=== PATIENT | male | born 1935 | race Asian ===

== ENCOUNTER → 2016-12-19 | Outpatient (CLI) | payer MEDICARE, MEDICAID | END | disposition home or self-care (01) | LOC: RADPV 10:41 | PROVIDERS: ATTEND Internal Medicine Nephrology | DX: N40.0 Benign prostatic hyperplasia without lower urinary tract symptoms (principal) | CPT/HCPCS: 76770 ==

== ENCOUNTER → 2017-02-01 | Outpatient (CLI) | payer MEDICARE, MEDICAID ==
[2017-02-01 10:25] LABS: APPEARANCE,URINE CLEAR (CLEAR); GLUCOSE, URINE (UA) NEGATIVE (NEGATIVE); KETONES,URINE NEGATIVE (NEGATIVE); LEUKOCYTE ESTERASE ,URINE NEGATIVE (NEGATIVE); OCCULT BLOOD,URINE NEGATIVE (NEGATIVE); PH,URINE 5.5 (5.0-8.0); PROTEIN,URINE NEGATIVE (NEGATIVE)
[2017-02-01 10:27] LABS: ADD UA MICROSCOPIC NO
[2017-02-01 11:35] LABS: ALBUMIN 3.7 g/dL (3.4-5.0); BILIRUBIN,TOTAL 0.7 mg/dL (0.1-1.0); CALCIUM, TOTAL 9.2 mg/dL (8.8-10.5); CREATININE 1.19 mg/dL (0.60-1.30); PHOSPHORUS 3.3 mg/dL (2.5-4.9); POTASSIUM 4.2 mmol/L (3.5-5.1)
== END | disposition home or self-care (01) ==
LOC: LABPV 08:51
PROVIDERS: ATTEND Internal Medicine Nephrology
DX: I12.9 Hypertensive chronic kidney disease with stage 1 through stage 4 chronic kidney disease, or unspecified chronic kidney disease (principal); N18.3 Chronic kidney disease, stage 3 (moderate); M85.80 Other specified disorders of bone density and structure, unspecified site; G20 Parkinson's disease
CPT/HCPCS: 81050; 82306; 82575; 83970; 84100; 84156; 84300

== ENCOUNTER → 2017-08-09 | Outpatient (CLI) | payer MEDICARE, MEDICAID ==
[2017-08-09 11:12] LABS: CALCIUM, TOTAL 9.3 mg/dL (8.8-10.5); CHOL/HDL RATIO 2.7 (4.2-7.3); CREATININE 1.3 mg/dL (0.60-1.30); POTASSIUM 4.4 mmol/L (3.5-5.1)
== END | disposition home or self-care (01) ==
LOC: LABPV 07:05
PROVIDERS: ATTEND Internal Medicine Nephrology
DX: N18.3 Chronic kidney disease, stage 3 (moderate) (principal); G20 Parkinson's disease; M85.80 Other specified disorders of bone density and structure, unspecified site; R79.89 Other specified abnormal findings of blood chemistry

== ENCOUNTER → 2018-07-15 | Outpatient (CLI) | payer MEDICARE, MEDICAID ==
[2018-07-15 10:09] LABS: ALBUMIN 3.3 g/dL (3.4-5.0); BILIRUBIN,TOTAL 0.6 mg/dL (0.1-1.0); CALCIUM, TOTAL 9.5 mg/dL (8.8-10.5); CREATININE 1.3 mg/dL (0.60-1.30); POTASSIUM 4.5 mmol/L (3.5-5.1); TOTAL PROTEIN, SERUM 7.3 g/dL (6.4-8.2)
[2018-07-15 10:17] LABS: APPEARANCE,URINE CLEAR (CLEAR); BILIRUBIN,URINE NEGATIVE (NEGATIVE); GLUCOSE, URINE (UA) NEGATIVE (NEGATIVE); KETONES,URINE NEGATIVE (NEGATIVE); LEUKOCYTE ESTERASE ,URINE NEGATIVE (NEGATIVE); NITRATE,URINE NEGATIVE (NEGATIVE); OCCULT BLOOD,URINE NEGATIVE (NEGATIVE); PH,URINE 5.5 (5.0-8.0); PROTEIN,URINE NEGATIVE (NEGATIVE); UROBILINOGEN,URINE 0.2 mg/dL (<=1.0)
== END | disposition home or self-care (01) ==
LOC: LABPV 07:58
PROVIDERS: ATTEND Internal Medicine Nephrology
DX: I42.9 Cardiomyopathy, unspecified (principal); R82.90 Unspecified abnormal findings in urine; I12.9 Hypertensive chronic kidney disease with stage 1 through stage 4 chronic kidney disease, or unspecified chronic kidney disease; N18.3 Chronic kidney disease, stage 3 (moderate)

== ENCOUNTER → 2018-11-28 | Outpatient (CLI) | payer MEDICARE, MEDICAID | END | disposition home or self-care (01) | LOC: RADMN 10:04 | PROVIDERS: ATTEND Internal Medicine | DX: R13.10 Dysphagia, unspecified (principal) | CPT/HCPCS: 74230 ==

== ENCOUNTER 2019-05-15 15:15 | Emergency (ER) | payer MEDICARE, MEDICAID ==
[~2019-05-15] VITALS: Ht 160 cm; Wt 50.0 kg
[2019-05-15] MEDS ORDERED: RASA0.5T2 PO (15:35)
[2019-05-15] MEDS ORDERED: CARB-102 PO (15:35)
[2019-05-15] MEDS ORDERED: TAMS-13 PO (15:35)
[2019-05-15] MEDS ORDERED: MEMA5 PO (15:35)
[2019-05-15 16:29] VITALS: BP 100/54
== END 2019-05-15 16:30 | disposition home or self-care (01) ==
LOC: EMS 15:16
DX: A31.9 Mycobacterial infection, unspecified (principal); Z90.49 Acquired absence of other specified parts of digestive tract; Z85.46 Personal history of malignant neoplasm of prostate; Z79.899 Other long term (current) drug therapy

== ENCOUNTER 2020-08-05 21:16 | Emergency (ER) | payer MEDICARE, MEDICAID ==
[~2020-08-05] VITALS: Ht 162.6 cm; Wt 63.6 kg
[~2020-08-05 21:16] MED LIST: CARB-102 PO; MEMA5 PO; RASA0.5T2 PO; TAMS-13 PO
[2020-08-05] MEDS ORDERED: SODIUM CHLORIDE 0.9% 1,000 ML IV ONE (22:45)
[2020-08-05] MEDS ORDERED: ACETAMINOPHEN 325 MG TABLET PO ONE (22:45)
[2020-08-05] MEDS ORDERED: KETOROLAC TROMETHAMINE 30 MG/ML VIAL IVP ONE (22:45)
[2020-08-05 23:00] LABS: BASOPHILS % (AUTO) 0.2 % (0.0-2.0); EOSINOPHILS % (AUTO) 0.6 % (1.0-6.0); HEMATOCRIT 40.5 % (41-53); HEMOGLOBIN 13.4 g/dL (13.5-17.5); LYMPHOCYTES # (AUTO) 0.8 K/uL (1.0-4.8); LYMPHOCYTES % (AUTO) 9.8 % (22.0-44.0); MEAN CORPUSCULAR HEMOGLOBIN 30.1 pg (26.0-34.0); MEAN CORPUSCULAR VOLUME 91 fL (80-100); MONOCYTES # (AUTO) 0.6 K/uL (0.1-1.0); MONOCYTES % (AUTO) 6.4 % (2.0-9.0); NEUTROPHILS # (AUTO) 7.2 K/uL (1.8-7.7); PLATELET COUNT (AUTO) 320 K/uL (150-450); RED BLOOD CELL COUNT(AUTO) 4.44 MIL/uL (4.50-5.90); RED CELL DISTRIBUTION WIDTH 13.1 % (11.5-14.5)
[2020-08-05 23:07] LABS: CALCIUM, TOTAL 9.4 mg/dL (8.8-10.5); CREATININE 1.27 mg/dL (0.60-1.30); POTASSIUM 4.6 mmol/L (3.5-5.1)
[2020-08-05 23:13] LABS: PROTHROMBIN TIME 10.5 SEC (9.4-11.6)
[2020-08-05 23:31] LABS: ALBUMIN 3.2 g/dL (3.4-5.0); BILIRUBIN,TOTAL 0.3 mg/dL (0.1-1.0); TOTAL PROTEIN, SERUM 8.4 g/dL (6.4-8.2)
[2020-08-06 00:39] LABS: APPEARANCE,URINE CLEAR (CLEAR); BILIRUBIN,URINE NEGATIVE (NEGATIVE); GLUCOSE, URINE (UA) NEGATIVE (NEGATIVE); KETONES,URINE TRACE mg/dL (NEGATIVE); LEUKOCYTE ESTERASE ,URINE NEGATIVE (NEGATIVE); NITRATE,URINE NEGATIVE (NEGATIVE); OCCULT BLOOD,URINE NEGATIVE (NEGATIVE); PH,URINE 5.5 (5.0-8.0); PROTEIN,URINE NEGATIVE (NEGATIVE); UROBILINOGEN,URINE 0.2 mg/dL (<=1.0)
[2020-08-06 04:00] VITALS: BP 138/75
== END 2020-08-06 04:21 | disposition home or self-care (01) ==
LOC: EMS 21:17
DX: M79.641 Pain in right hand (principal); M79.89 Other specified soft tissue disorders; R55 Syncope and collapse; Z90.89 Acquired absence of other organs
CPT/HCPCS: 36415; 70450; 71045; 73130; 80053; 81003; 82550; 83880; 84484; 85025; 85610; 93005; 93971; 96361; 96374; 99285; J1885; J7030

== ENCOUNTER 2020-11-24 17:24 | Inpatient (IN) | payer MEDICARE, MEDICAID ==
[~2020-11-24] VITALS: Ht 162.6 cm; Wt 62.0 kg
[2020-11-24] MEDS ORDERED: 0.9% SODIUM CHLORIDE 10 ML SYRINGE IVP PRN (17:45)
[2020-11-24] MEDS ORDERED: ACETAMINOPHEN 1000 MG/ISO-OSM 100 ML IV ONE (17:45)
[2020-11-24] MEDS ORDERED: ALBUTEROL SULFATE HFA 90 MCG/PUFF 8 GM INHALER IH ONE (17:45)
[2020-11-24] MEDS ORDERED: SODIUM CHLORIDE 0.9% 1,850 ML IV ONE (17:45)
[2020-11-24 18:03] LABS: COVID AG,FIA SOURCE NASOPHARYNGEAL
[2020-11-24 18:11] LABS: ABG BASE EXCESS -0.8 mmol/L (-2.0-3.0); ABG CARBOXYHEMOGLOBIN 0.3 % (0.0-1.5); ABG HCO3 24.3 mmol/L (22.0-26.0); ABG METHEMOGLOBIN 0.2 % (0.0-1.5); ABG OXYGEN CONTENT 17.3 mL/dL (15.0-23.0); ABG OXYGEN SATURATION 95.6 % (95.0-98.0); ABG OXYHEMOGLOBIN 95.1 % (94.0-100.0); ABG PCO2 35 mmHg (35-45); ABG PH 7.438 (7.35-7.450); ABG TOTAL HEMOGLOBIN 12.9 G/dL (12.0-18.0); PO2, ARTERIAL BG 81.9 mmHg (71.0-79.0); SITE, BLOOD GAS RT RADIAL; SOURCE, BLOOD GAS ARTERIAL; TEMPERATURE, FAHRENHEIT, BG 100.6 FAHREN (96.0-98.6)
[2020-11-24 18:12] LABS: O2 DEVICE,BLOOD GAS ROOM AIR (ROOM AIR)
[2020-11-24 18:21] LABS: BASOPHILS % (AUTO) 0.2 % (0.0-2.0); EOSINOPHILS % (AUTO) 0.1 % (1.0-6.0); HEMATOCRIT 37.2 % (41-53); LYMPHOCYTES # (AUTO) 0.5 K/uL (1.0-4.8); LYMPHOCYTES % (AUTO) 3.4 % (22.0-44.0); MEAN CORPUSCULAR HEMOGLOBIN 29.1 pg (26.0-34.0); MEAN CORPUSCULAR HGB CONC 32.3 G/dL (31.0-37.0); MEAN CORPUSCULAR VOLUME 90 fL (80-100); MONOCYTES # (AUTO) 0.6 K/uL (0.1-1.0); MONOCYTES % (AUTO) 3.9 % (2.0-9.0); NEUTROPHILS # (AUTO) 13.4 K/uL (1.8-7.7); PLATELET COUNT (AUTO) 255 K/uL (150-450); RED BLOOD CELL COUNT(AUTO) 4.13 MIL/uL (4.50-5.90); RED CELL DISTRIBUTION WIDTH 14.2 % (11.5-14.5)
[2020-11-24 18:23] LABS: NEUTROPHILS % (AUTO) 92.4 % (40.0-70.0)
[2020-11-24 18:33] LABS: ANION GAP 11 mmol/L (8-16); CALCIUM, TOTAL 9.2 mg/dL (8.8-10.5); CARBON DIOXIDE 25 mmol/L (22-29); CHLORIDE 106 mmol/L (98-107); CREATININE 1.12 mg/dL (0.60-1.30); GLUCOSE,RANDOM 190 mg/dL (70-110); POTASSIUM 4.1 mmol/L (3.5-5.1); SODIUM SERUM 142 mmol/L (136-145); UREA NITROGEN, BLOOD 32 mg/dL (7-18)
[2020-11-24 18:34] LABS: GLOMERULAR FILTR. RATE CALC > 60 mL/min (>60)
[2020-11-24 18:35] LABS: INFLUENZA TYPE A NEGATIVE FOR TYPE A (NEGATIVE); INFLUENZA TYPE B NEGATIVE FOR TYPE B (NEGATIVE)
[2020-11-24 18:35] LABS: D-DIMER 1.56 mg/L FEU (0.00-0.50); PROTHROMBIN TIME 10.6 SEC (9.4-11.6)
[2020-11-24 18:38] LABS: B-TYPE NATRIURETIC PEPTIDE 200 pg/mL (0-100)
[2020-11-24 18:40] LABS: LACTIC ACID 1.9 mmol/L (0.4-2.0)
[2020-11-24 18:57] LABS: ALANINE AMINOTRANSFERASE 7 U/L (12-78); ALBUMIN 2.9 g/dL (3.4-5.0); ALKALINE PHOSPHATASE 101 U/L (46-116); ASPARTATE AMINOTRANSFERASE 17 U/L (15-37); BILIRUBIN,TOTAL 0.4 mg/dL (0.1-1.0); CREATINE KINASE, TOTAL ONLY 76 U/L (39-308); TOTAL PROTEIN, SERUM 7.3 g/dL (6.4-8.2)
[2020-11-24] MEDS ORDERED: AZITHROMYCIN 500 MG/NS 250 ML IV ONE (19:15)
[2020-11-24] MEDS ORDERED: CefTRIAXone 1 GM/DEXTROSE 50 ML IV ONE (19:15)
[2020-11-24] MEDS ORDERED: ONDANSETRON HCL 4 MG/2 ML VIAL IVP PRN (20:30)
[2020-11-24] MEDS ORDERED: ALBUTEROL SULFATE HFA 90 MCG/PUFF 8 GM INHALER IH PRN (20:45)
[2020-11-24 21:24] LABS: APPEARANCE,URINE CLEAR (CLEAR); BILIRUBIN,URINE NEGATIVE (NEGATIVE); GLUCOSE, URINE (UA) NEGATIVE (NEGATIVE); KETONES,URINE TRACE mg/dL (NEGATIVE); LEUKOCYTE ESTERASE ,URINE NEGATIVE (NEGATIVE); NITRATE,URINE NEGATIVE (NEGATIVE); OCCULT BLOOD,URINE NEGATIVE (NEGATIVE); PROTEIN,URINE NEGATIVE (NEGATIVE); UROBILINOGEN,URINE 0.2 mg/dL (<=1.0)
[2020-11-24] MEDS: DOCUSATE SODIUM 100 MG CAPSULE PO SCH (21:39)
[2020-11-24] MEDS: CARBIDOPA/LEVODOPA 25-100 MG TABLET PO SCH (21:39)
[2020-11-24] MEDS: SODIUM CHLORIDE 0.9% 1,000 ML IV SCH (21:39)
[2020-11-24] MEDS: TAMSULOSIN HCL 0.4 MG CAPSULE PO SCH (21:39)
[2020-11-24] MEDS ORDERED: FLUT1BLS IH (22:26)
[2020-11-24] MEDS ORDERED: QUET25TA PO (22:54)
[2020-11-24] MEDS: HEPARIN SODIUM,PORCINE 5,000 UNITS/ML VIAL SQ SCH (23:14)
[2020-11-25] MEDS: SODIUM CHLORIDE 0.9% 1,000 ML IV SCH ×2 (04:10→13:27)
[2020-11-25] MEDS: CARBIDOPA/LEVODOPA 25-100 MG TABLET PO SCH ×3 (09:00→22:06)
[2020-11-25 09:16] VITALS: BP 139/73
[2020-11-25 11:10] LABS: BASOPHILS % (AUTO) 0.5 % (0.0-2.0); EOSINOPHILS % (AUTO) 0.5 % (1.0-6.0); HEMATOCRIT 38.8 % (41-53); HEMOGLOBIN 12.3 g/dL (13.5-17.5); LYMPHOCYTES # (AUTO) 0.8 K/uL (1.0-4.8); LYMPHOCYTES % (AUTO) 6.5 % (22.0-44.0); MEAN CORPUSCULAR HEMOGLOBIN 29.1 pg (26.0-34.0); MEAN CORPUSCULAR HGB CONC 31.7 G/dL (31.0-37.0); MEAN CORPUSCULAR VOLUME 92 fL (80-100); MONOCYTES # (AUTO) 0.5 K/uL (0.1-1.0); MONOCYTES % (AUTO) 4.3 % (2.0-9.0); NEUTROPHILS # (AUTO) 10.7 K/uL (1.8-7.7); PLATELET COUNT (AUTO) 223 K/uL (150-450); RED BLOOD CELL COUNT(AUTO) 4.24 MIL/uL (4.50-5.90); RED CELL DISTRIBUTION WIDTH 14.5 % (11.5-14.5)
[2020-11-25 11:13] LABS: NEUTROPHILS % (AUTO) 88.2 % (40.0-70.0)
[2020-11-25 11:47] VITALS: BP 126/67
[2020-11-25] MEDS: BENZONATATE 100 MG CAPSULE PO PRN (11:54)
[2020-11-25] MEDS: FAMOTIDINE 20 MG TABLET PO SCH (11:54)
[2020-11-25] MEDS: DOCUSATE SODIUM 100 MG CAPSULE PO SCH ×2 (11:54→21:00)
[2020-11-25] MEDS: HEPARIN SODIUM,PORCINE 5,000 UNITS/ML VIAL SQ SCH ×2 (11:55→16:15)
[2020-11-25] MEDS: DOXYCYCLINE HYCLATE 100 MG in DEXTROSE 5%-WATER 100 ML IV SCH (13:26)
[2020-11-25] MEDS: MetroNIDAZOLE 500 MG/NACL 100 ML IV SCH ×2 (13:27→21:28)
[2020-11-25 16:23] VITALS: BP 132/73
[2020-11-25] MEDS ORDERED: AZITHROMYCIN 500 MG/NS 250 ML IV SCH (19:00)
[2020-11-25 20:02] VITALS: BP 123/69
[2020-11-25] MEDS: CefTRIAXone 1 GM/DEXTROSE 50 ML IV SCH (22:04)
[2020-11-25] MEDS: TAMSULOSIN HCL 0.4 MG CAPSULE PO SCH (22:06)
[2020-11-26] MEDS: HEPARIN SODIUM,PORCINE 5,000 UNITS/ML VIAL SQ SCH ×4 (00:20→23:44)
[2020-11-26 00:30] VITALS: BP 101/62
[2020-11-26] MEDS: DOXYCYCLINE HYCLATE 100 MG in DEXTROSE 5%-WATER 100 ML IV SCH ×3 (00:37→23:45)
[2020-11-26] MEDS: SODIUM CHLORIDE 0.9% 1,000 ML IV SCH ×3 (02:55→20:18)
[2020-11-26 03:37] VITALS: BP 117/63
[2020-11-26] MEDS: MetroNIDAZOLE 500 MG/NACL 100 ML IV SCH ×3 (05:07→20:12)
[2020-11-26] MEDS: CARBIDOPA/LEVODOPA 25-100 MG TABLET PO SCH ×4 (06:02→16:10)
[2020-11-26] MEDS: DOCUSATE SODIUM 100 MG CAPSULE PO SCH ×2 (07:49→20:13)
[2020-11-26] MEDS: FAMOTIDINE 20 MG TABLET PO SCH (07:49)
[2020-11-26 07:58] VITALS: BP 120/70
[2020-11-26 09:05] LABS: BASOPHILS % (AUTO) 0.5 % (0.0-2.0); EOSINOPHILS % (AUTO) 1.3 % (1.0-6.0); HEMATOCRIT 35.7 % (41-53); HEMOGLOBIN 11.6 g/dL (13.5-17.5); LYMPHOCYTES % (AUTO) 10.3 % (22.0-44.0); MEAN CORPUSCULAR HEMOGLOBIN 29.8 pg (26.0-34.0); MEAN CORPUSCULAR HGB CONC 32.6 G/dL (31.0-37.0); MEAN CORPUSCULAR VOLUME 92 fL (80-100); MONOCYTES # (AUTO) 0.6 K/uL (0.1-1.0); MONOCYTES % (AUTO) 6.4 % (2.0-9.0); NEUTROPHILS # (AUTO) 7.7 K/uL (1.8-7.7); NEUTROPHILS % (AUTO) 81.5 % (40.0-70.0); PLATELET COUNT (AUTO) 208 K/uL (150-450); RED CELL DISTRIBUTION WIDTH 14.1 % (11.5-14.5)
[2020-11-26 09:26] LABS: ALANINE AMINOTRANSFERASE 14 U/L (12-78); ALBUMIN 2.6 g/dL (3.4-5.0); ALKALINE PHOSPHATASE 76 U/L (46-116); ANION GAP 10 mmol/L (8-16); ASPARTATE AMINOTRANSFERASE 25 U/L (15-37); BILIRUBIN,TOTAL 0.5 mg/dL (0.1-1.0); CALCIUM, TOTAL 8.2 mg/dL (8.8-10.5); CARBON DIOXIDE 23 mmol/L (22-29); CHLORIDE 106 mmol/L (98-107); CREATININE 1.08 mg/dL (0.60-1.30); GLUCOSE,RANDOM 105 mg/dL (70-110); POTASSIUM 3.3 mmol/L (3.5-5.1); SODIUM SERUM 139 mmol/L (136-145); TOTAL PROTEIN, SERUM 6.7 g/dL (6.4-8.2); UREA NITROGEN, BLOOD 18 mg/dL (7-18)
[2020-11-26 09:31] LABS: GLOMERULAR FILTR. RATE CALC > 60 mL/min (>60)
[2020-11-26 11:51] VITALS: BP 136/72
[2020-11-26 16:20] VITALS: BP 143/76
[2020-11-26 20:05] VITALS: BP 141/74
[2020-11-26] MEDS: TAMSULOSIN HCL 0.4 MG CAPSULE PO SCH (20:12)
[2020-11-26] MEDS: CefTRIAXone 1 GM/DEXTROSE 50 ML IV SCH (20:12)
[2020-11-27 00:20] VITALS: BP 146/80
[2020-11-27 04:12] VITALS: BP 139/52
[2020-11-27] MEDS: MetroNIDAZOLE 500 MG/NACL 100 ML IV SCH ×3 (04:20→20:55)
[2020-11-27] MEDS: CARBIDOPA/LEVODOPA 25-100 MG TABLET PO SCH ×3 (06:33→18:05)
[2020-11-27 07:14] LABS: BASOPHILS % (AUTO) 0.3 % (0.0-2.0); EOSINOPHILS % (AUTO) 0.5 % (1.0-6.0); HEMATOCRIT 35.4 % (41-53); HEMOGLOBIN 11.2 g/dL (13.5-17.5); LYMPHOCYTES # (AUTO) 0.8 K/uL (1.0-4.8); LYMPHOCYTES % (AUTO) 8.1 % (22.0-44.0); MEAN CORPUSCULAR HEMOGLOBIN 29.5 pg (26.0-34.0); MEAN CORPUSCULAR HGB CONC 31.7 G/dL (31.0-37.0); MEAN CORPUSCULAR VOLUME 93 fL (80-100); MONOCYTES # (AUTO) 0.6 K/uL (0.1-1.0); MONOCYTES % (AUTO) 6.4 % (2.0-9.0); NEUTROPHILS # (AUTO) 8.1 K/uL (1.8-7.7); NEUTROPHILS % (AUTO) 84.7 % (40.0-70.0); PLATELET COUNT (AUTO) 204 K/uL (150-450); RED BLOOD CELL COUNT(AUTO) 3.81 MIL/uL (4.50-5.90); RED CELL DISTRIBUTION WIDTH 14.6 % (11.5-14.5)
[2020-11-27 07:33] LABS: ALANINE AMINOTRANSFERASE 17 U/L (12-78); ALBUMIN 2.3 g/dL (3.4-5.0); ALKALINE PHOSPHATASE 83 U/L (46-116); ANION GAP 11 mmol/L (8-16); ASPARTATE AMINOTRANSFERASE 25 U/L (15-37); BILIRUBIN,TOTAL 0.5 mg/dL (0.1-1.0); CALCIUM, TOTAL 8.1 mg/dL (8.8-10.5); CARBON DIOXIDE 23 mmol/L (22-29); CHLORIDE 107 mmol/L (98-107); CREATININE 0.96 mg/dL (0.60-1.30); GLUCOSE,RANDOM 111 mg/dL (70-110); POTASSIUM 3.8 mmol/L (3.5-5.1); SODIUM SERUM 141 mmol/L (136-145); TOTAL PROTEIN, SERUM 6.3 g/dL (6.4-8.2); UREA NITROGEN, BLOOD 17 mg/dL (7-18)
[2020-11-27 07:37] LABS: GLOMERULAR FILTR. RATE CALC > 60 mL/min (>60)
[2020-11-27] MEDS: HEPARIN SODIUM,PORCINE 5,000 UNITS/ML VIAL SQ SCH ×2 (07:44→18:06)
[2020-11-27] MEDS: FAMOTIDINE 20 MG TABLET PO SCH (07:44)
[2020-11-27] MEDS: DOCUSATE SODIUM 100 MG CAPSULE PO SCH ×2 (07:45→19:58)
[2020-11-27 09:31] VITALS: BP 120/63
[2020-11-27] MEDS: DOXYCYCLINE HYCLATE 100 MG in DEXTROSE 5%-WATER 100 ML IV SCH ×2 (11:28→23:53)
[2020-11-27 12:33] VITALS: BP 104/69
[2020-11-27 16:21] VITALS: BP 158/82
[2020-11-27] MEDS: SODIUM CHLORIDE 0.9% 1,000 ML IV SCH (18:49)
[2020-11-27] MEDS: CefTRIAXone 1 GM/DEXTROSE 50 ML IV SCH (19:58)
[2020-11-27] MEDS: TAMSULOSIN HCL 0.4 MG CAPSULE PO SCH (19:58)
[2020-11-27 20:11] VITALS: BP 141/73
[2020-11-28 00:17] VITALS: BP 147/81
[2020-11-28] MEDS: MetroNIDAZOLE 500 MG/NACL 100 ML IV SCH ×3 (04:46→21:16)
[2020-11-28 04:53] VITALS: BP 145/77
[2020-11-28] MEDS: CARBIDOPA/LEVODOPA 25-100 MG TABLET PO SCH ×3 (06:33→16:43)
[2020-11-28 06:44] LABS: BASOPHILS % (AUTO) 0.4 % (0.0-2.0); EOSINOPHILS % (AUTO) 0.5 % (1.0-6.0); HEMATOCRIT 35.9 % (41-53); HEMOGLOBIN 11.9 g/dL (13.5-17.5); LYMPHOCYTES % (AUTO) 8.6 % (22.0-44.0); MEAN CORPUSCULAR HEMOGLOBIN 29.6 pg (26.0-34.0); MEAN CORPUSCULAR HGB CONC 33.1 G/dL (31.0-37.0); MEAN CORPUSCULAR VOLUME 90 fL (80-100); MONOCYTES # (AUTO) 0.8 K/uL (0.1-1.0); MONOCYTES % (AUTO) 7.5 % (2.0-9.0); NEUTROPHILS # (AUTO) 9.1 K/uL (1.8-7.7); PLATELET COUNT (AUTO) 232 K/uL (150-450); RED BLOOD CELL COUNT(AUTO) 4.01 MIL/uL (4.50-5.90); RED CELL DISTRIBUTION WIDTH 14.3 % (11.5-14.5)
[2020-11-28 07:02] LABS: ANION GAP 12 mmol/L (8-16); CALCIUM, TOTAL 8.4 mg/dL (8.8-10.5); CARBON DIOXIDE 22 mmol/L (22-29); CHLORIDE 104 mmol/L (98-107); CREATININE 0.94 mg/dL (0.60-1.30); GLUCOSE,RANDOM 112 mg/dL (70-110); POTASSIUM 3.3 mmol/L (3.5-5.1); SODIUM SERUM 138 mmol/L (136-145); UREA NITROGEN, BLOOD 14 mg/dL (7-18)
[2020-11-28 07:03] LABS: GLOMERULAR FILTR. RATE CALC > 60 mL/min (>60)
[2020-11-28 07:13] VITALS: BP 125/67
[2020-11-28] MEDS: HEPARIN SODIUM,PORCINE 5,000 UNITS/ML VIAL SQ SCH ×3 (09:07→16:43)
[2020-11-28] MEDS: FAMOTIDINE 20 MG TABLET PO SCH (09:07)
[2020-11-28] MEDS: DOCUSATE SODIUM 100 MG CAPSULE PO SCH ×2 (09:07→21:17)
[2020-11-28] MEDS: DOXYCYCLINE HYCLATE 100 MG in DEXTROSE 5%-WATER 100 ML IV SCH (11:16)
[2020-11-28 11:19] VITALS: BP 125/64
[2020-11-28] MEDS: SODIUM CHLORIDE 0.9% 1,000 ML IV SCH (11:22)
[2020-11-28 15:44] VITALS: BP 143/70
[2020-11-28 20:21] VITALS: BP_SYST 152; BP_SYST 159; BP_DIAS 77
[2020-11-28] MEDS: BENZONATATE 100 MG CAPSULE PO PRN (21:17)
[2020-11-28] MEDS: ACETAMINOPHEN 325 MG TABLET PO PRN (21:17)
[2020-11-28] MEDS: TAMSULOSIN HCL 0.4 MG CAPSULE PO SCH (21:17)
[2020-11-28] MEDS: CefTRIAXone 1 GM/DEXTROSE 50 ML IV SCH (21:17)
[2020-11-29] MEDS: HEPARIN SODIUM,PORCINE 5,000 UNITS/ML VIAL SQ SCH ×3 (00:14→16:29)
[2020-11-29] MEDS: DOXYCYCLINE HYCLATE 100 MG in DEXTROSE 5%-WATER 100 ML IV SCH ×2 (00:15→13:29)
[2020-11-29 00:40] VITALS: BP 138/76
[2020-11-29 05:18] VITALS: BP 135/76
[2020-11-29] MEDS: MetroNIDAZOLE 500 MG/NACL 100 ML IV SCH ×3 (05:26→19:59)
[2020-11-29] MEDS: CARBIDOPA/LEVODOPA 25-100 MG TABLET PO SCH ×3 (06:32→16:29)
[2020-11-29 06:57] LABS: BASOPHILS % (AUTO) 0.5 % (0.0-2.0); EOSINOPHILS % (AUTO) 1.8 % (1.0-6.0); HEMATOCRIT 36.6 % (41-53); HEMOGLOBIN 11.9 g/dL (13.5-17.5); LYMPHOCYTES # (AUTO) 1.2 K/uL (1.0-4.8); LYMPHOCYTES % (AUTO) 8.8 % (22.0-44.0); MEAN CORPUSCULAR HEMOGLOBIN 29.4 pg (26.0-34.0); MEAN CORPUSCULAR HGB CONC 32.5 G/dL (31.0-37.0); MEAN CORPUSCULAR VOLUME 91 fL (80-100); MONOCYTES # (AUTO) 1.3 K/uL (0.1-1.0); MONOCYTES % (AUTO) 9.8 % (2.0-9.0); NEUTROPHILS # (AUTO) 10.3 K/uL (1.8-7.7); NEUTROPHILS % (AUTO) 79.1 % (40.0-70.0); PLATELET COUNT (AUTO) 243 K/uL (150-450); RED BLOOD CELL COUNT(AUTO) 4.05 MIL/uL (4.50-5.90); RED CELL DISTRIBUTION WIDTH 14.2 % (11.5-14.5)
[2020-11-29 07:02] LABS: ANION GAP 9 mmol/L (8-16); CARBON DIOXIDE 26 mmol/L (22-29); CHLORIDE 108 mmol/L (98-107); CREATININE 0.99 mg/dL (0.60-1.30); GLUCOSE,RANDOM 83 mg/dL (70-110); POTASSIUM 3.6 mmol/L (3.5-5.1); SODIUM SERUM 143 mmol/L (136-145); UREA NITROGEN, BLOOD 16 mg/dL (7-18)
[2020-11-29 07:09] LABS: CALCIUM, TOTAL 8.5 mg/dL (8.8-10.5); GLOMERULAR FILTR. RATE CALC > 60 mL/min (>60)
[2020-11-29 08:03] VITALS: BP 130/76
[2020-11-29] MEDS: DOCUSATE SODIUM 100 MG CAPSULE PO SCH ×2 (09:00→20:14)
[2020-11-29] MEDS: FAMOTIDINE 20 MG TABLET PO SCH (09:44)
[2020-11-29 11:16] VITALS: BP 133/59
[2020-11-29] MEDS ORDERED: SODIUM CHLORIDE 0.9% 250 ML IV ONE (13:22)
[2020-11-29] MEDS ORDERED: BENZOCAINE 10% 7 GM GEL TP PRN (14:15)
[2020-11-29] MEDS: BENZONATATE 100 MG CAPSULE PO PRN (14:40)
[2020-11-29] MEDS: ACETAMINOPHEN 325 MG TABLET PO PRN (14:59)
[2020-11-29 15:27] VITALS: BP 150/82
[2020-11-29] MEDS: TAMSULOSIN HCL 0.4 MG CAPSULE PO SCH (20:15)
[2020-11-29] MEDS: LACTOBACILLUS ACIDOPHILUS/BULGARICUS TABLET PO SCH (20:15)
[2020-11-29 20:34] VITALS: BP 128/70
[2020-11-29] MEDS: CefTRIAXone 1 GM/DEXTROSE 50 ML IV SCH (20:54)
[2020-11-29 21:45] LABS: APPEARANCE,URINE CLEAR (CLEAR); BILIRUBIN,URINE NEGATIVE (NEGATIVE); GLUCOSE, URINE (UA) NEGATIVE (NEGATIVE); KETONES,URINE NEGATIVE (NEGATIVE); LEUKOCYTE ESTERASE ,URINE MODERATE (NEGATIVE); NITRATE,URINE NEGATIVE (NEGATIVE); OCCULT BLOOD,URINE NEGATIVE (NEGATIVE); PH,URINE 5.5 (5.0-8.0); PROTEIN,URINE NEGATIVE (NEGATIVE); UROBILINOGEN,URINE 0.2 mg/dL (<=1.0)
[2020-11-29 22:05] LABS: RBC,URINE 0-2 /HPF (0-2)
[2020-11-29 22:06] LABS: BACTERIA,URINE Few /HPF (None Seen); SQUAMOUS EPITHELIAL CELL,UR Rare /LPF (None Seen)
[2020-11-30 00:18] VITALS: BP 143/80
[2020-11-30] MEDS: HEPARIN SODIUM,PORCINE 5,000 UNITS/ML VIAL SQ SCH ×4 (00:29→23:28)
[2020-11-30] MEDS: DOXYCYCLINE HYCLATE 100 MG in DEXTROSE 5%-WATER 100 ML IV SCH (00:30)
[2020-11-30] MEDS: BENZONATATE 100 MG CAPSULE PO PRN ×2 (03:58→16:34)
[2020-11-30 04:23] VITALS: BP 134/73
[2020-11-30] MEDS: MetroNIDAZOLE 500 MG/NACL 100 ML IV SCH (04:28)
[2020-11-30] MEDS: CARBIDOPA/LEVODOPA 25-100 MG TABLET PO SCH ×3 (06:00→16:34)
[2020-11-30 08:19] VITALS: BP 106/69
[2020-11-30] MEDS: FAMOTIDINE 20 MG TABLET PO SCH (08:50)
[2020-11-30] MEDS: LACTOBACILLUS ACIDOPHILUS/BULGARICUS TABLET PO SCH ×2 (08:50→21:22)
[2020-11-30] MEDS: DOCUSATE SODIUM 100 MG CAPSULE PO SCH ×2 (09:00→21:22)
[2020-11-30 11:53] VITALS: BP 146/63
[2020-11-30 12:02] LABS: ALANINE AMINOTRANSFERASE 15 U/L (12-78); ALBUMIN 2.3 g/dL (3.4-5.0); ALKALINE PHOSPHATASE 96 U/L (46-116); ANION GAP 13 mmol/L (8-16); ASPARTATE AMINOTRANSFERASE 31 U/L (15-37); BILIRUBIN,TOTAL 0.2 mg/dL (0.1-1.0); CALCIUM, TOTAL 8.7 mg/dL (8.8-10.5); CARBON DIOXIDE 24 mmol/L (22-29); CHLORIDE 105 mmol/L (98-107); CREATININE 0.97 mg/dL (0.60-1.30); GLUCOSE,RANDOM 176 mg/dL (70-110); SODIUM SERUM 142 mmol/L (136-145); TOTAL PROTEIN, SERUM 6.5 g/dL (6.4-8.2); UREA NITROGEN, BLOOD 20 mg/dL (7-18)
[2020-11-30 12:03] LABS: GLOMERULAR FILTR. RATE CALC > 60 mL/min (>60)
[2020-11-30 14:58] LABS: BASOPHILS % (AUTO) 0.3 % (0.0-2.0); EOSINOPHILS % (AUTO) 1.6 % (1.0-6.0); HEMOGLOBIN 12.9 g/dL (13.5-17.5); LYMPHOCYTES # (AUTO) 0.7 K/uL (1.0-4.8); LYMPHOCYTES % (AUTO) 4.9 % (22.0-44.0); MEAN CORPUSCULAR HEMOGLOBIN 29.2 pg (26.0-34.0); MEAN CORPUSCULAR HGB CONC 32.1 G/dL (31.0-37.0); MEAN CORPUSCULAR VOLUME 91 fL (80-100); MONOCYTES % (AUTO) 7.1 % (2.0-9.0); NEUTROPHILS # (AUTO) 12.3 K/uL (1.8-7.7); PLATELET COUNT (AUTO) 280 K/uL (150-450); RED CELL DISTRIBUTION WIDTH 14.2 % (11.5-14.5)
[2020-11-30 15:03] LABS: NEUTROPHILS % (AUTO) 86.1 % (40.0-70.0)
[2020-11-30] MEDS: PIPERACILLIN/TAZO 3.375 GM/D5W 50 ML IV SCH ×2 (16:06→21:24)
[2020-11-30] MEDS ORDERED: SODIUM CHLORIDE 0.9% 250 ML IV ONE (16:11)
[2020-11-30 16:30] VITALS: BP 154/63
[2020-11-30 19:38] VITALS: BP 139/71
[2020-11-30] MEDS: TAMSULOSIN HCL 0.4 MG CAPSULE PO SCH (21:22)
[2020-12-01] VITALS (7 sets, daily range): BP systolic 121–138; BP diastolic 58–76
[2020-12-01] MEDS: PIPERACILLIN/TAZO 3.375 GM/D5W 50 ML IV SCH ×4 (02:52→20:10)
[2020-12-01] MEDS: CARBIDOPA/LEVODOPA 25-100 MG TABLET PO SCH ×3 (06:43→17:30)
[2020-12-01 08:37] LABS: BASOPHILS % (AUTO) 0.4 % (0.0-2.0); EOSINOPHILS % (AUTO) 2.8 % (1.0-6.0); HEMOGLOBIN 11.1 g/dL (13.5-17.5); LYMPHOCYTES # (AUTO) 0.7 K/uL (1.0-4.8); LYMPHOCYTES % (AUTO) 6.7 % (22.0-44.0); MEAN CORPUSCULAR HEMOGLOBIN 29.6 pg (26.0-34.0); MEAN CORPUSCULAR HGB CONC 32.7 G/dL (31.0-37.0); MEAN CORPUSCULAR VOLUME 91 fL (80-100); MONOCYTES # (AUTO) 0.8 K/uL (0.1-1.0); MONOCYTES % (AUTO) 7.8 % (2.0-9.0); NEUTROPHILS # (AUTO) 8.5 K/uL (1.8-7.7); NEUTROPHILS % (AUTO) 82.3 % (40.0-70.0); PLATELET COUNT (AUTO) 284 K/uL (150-450); RED BLOOD CELL COUNT(AUTO) 3.75 MIL/uL (4.50-5.90); RED CELL DISTRIBUTION WIDTH 14.4 % (11.5-14.5)
[2020-12-01 08:58] LABS: ALANINE AMINOTRANSFERASE 10 U/L (12-78); ALKALINE PHOSPHATASE 90 U/L (46-116); ANION GAP 7 mmol/L (8-16); ASPARTATE AMINOTRANSFERASE 25 U/L (15-37); BILIRUBIN,TOTAL 0.6 mg/dL (0.1-1.0); CALCIUM, TOTAL 8.7 mg/dL (8.8-10.5); CARBON DIOXIDE 28 mmol/L (22-29); CHLORIDE 105 mmol/L (98-107); CREATININE 0.97 mg/dL (0.60-1.30); GLUCOSE,RANDOM 110 mg/dL (70-110); POTASSIUM 3.9 mmol/L (3.5-5.1); SODIUM SERUM 140 mmol/L (136-145); UREA NITROGEN, BLOOD 19 mg/dL (7-18)
[2020-12-01 09:00] LABS: GLOMERULAR FILTR. RATE CALC > 60 mL/min (>60)
[2020-12-01] MEDS: DOCUSATE SODIUM 100 MG CAPSULE PO SCH ×2 (09:00→19:19)
[2020-12-01] MEDS: LACTOBACILLUS ACIDOPHILUS/BULGARICUS TABLET PO SCH ×2 (09:17→20:10)
[2020-12-01] MEDS: FAMOTIDINE 20 MG TABLET PO SCH (09:17)
[2020-12-01] MEDS: HEPARIN SODIUM,PORCINE 5,000 UNITS/ML VIAL SQ SCH ×3 (09:18→23:57)
[2020-12-01] MEDS: TAMSULOSIN HCL 0.4 MG CAPSULE PO SCH (20:10)
[2020-12-02] MEDS: PIPERACILLIN/TAZO 3.375 GM/D5W 50 ML IV SCH ×4 (03:38→20:58)
[2020-12-02 04:14] VITALS: BP 127/76
[2020-12-02 07:17] VITALS: BP 126/66
[2020-12-02] MEDS: LACTOBACILLUS ACIDOPHILUS/BULGARICUS TABLET PO SCH ×2 (08:18→20:59)
[2020-12-02] MEDS: CARBIDOPA/LEVODOPA 25-100 MG TABLET PO SCH ×3 (08:19→17:31)
[2020-12-02] MEDS: FAMOTIDINE 20 MG TABLET PO SCH (08:19)
[2020-12-02] MEDS: HEPARIN SODIUM,PORCINE 5,000 UNITS/ML VIAL SQ SCH ×2 (08:23→15:29)
[2020-12-02] MEDS: DOCUSATE SODIUM 100 MG CAPSULE PO SCH ×2 (09:00→20:59)
[2020-12-02 11:03] VITALS: BP 123/54
[2020-12-02 16:40] VITALS: BP 119/68
[2020-12-02] MEDS ORDERED: SODIUM CHLORIDE 0.9% 1,000 ML ONE (17:45)
[2020-12-02 19:44] VITALS: BP 134/66
[2020-12-02] MEDS: TAMSULOSIN HCL 0.4 MG CAPSULE PO SCH (20:59)
[2020-12-03] VITALS (7 sets, daily range): BP systolic 111–135; BP diastolic 61–82
[2020-12-03] MEDS: HEPARIN SODIUM,PORCINE 5,000 UNITS/ML VIAL SQ SCH ×3 (01:05→15:20)
[2020-12-03] MEDS: PIPERACILLIN/TAZO 3.375 GM/D5W 50 ML IV SCH ×4 (02:18→20:35)
[2020-12-03] MEDS: CARBIDOPA/LEVODOPA 25-100 MG TABLET PO SCH ×3 (08:00→17:26)
[2020-12-03] MEDS: FAMOTIDINE 20 MG TABLET PO SCH (08:00)
[2020-12-03] MEDS: DOCUSATE SODIUM 100 MG CAPSULE PO SCH ×2 (08:01→20:35)
[2020-12-03] MEDS: LACTOBACILLUS ACIDOPHILUS/BULGARICUS TABLET PO SCH ×2 (08:01→20:35)
[2020-12-03] MEDS ORDERED: NYSTATIN 15 GM POWDER BOTTLE TP PRN (12:00)
[2020-12-03] MEDS: TAMSULOSIN HCL 0.4 MG CAPSULE PO SCH (20:35)
[2020-12-04] MEDS: HEPARIN SODIUM,PORCINE 5,000 UNITS/ML VIAL SQ SCH ×3 (00:03→15:09)
[2020-12-04] MEDS: PIPERACILLIN/TAZO 3.375 GM/D5W 50 ML IV SCH ×4 (02:04→21:31)
[2020-12-04 04:12] VITALS: BP 118/67
[2020-12-04 08:14] VITALS: BP 105/61
[2020-12-04] MEDS: CARBIDOPA/LEVODOPA 25-100 MG TABLET PO SCH ×3 (08:29→16:39)
[2020-12-04] MEDS: LACTOBACILLUS ACIDOPHILUS/BULGARICUS TABLET PO SCH ×2 (08:29→21:31)
[2020-12-04] MEDS: FAMOTIDINE 20 MG TABLET PO SCH (08:29)
[2020-12-04] MEDS: DOCUSATE SODIUM 100 MG CAPSULE PO SCH ×2 (08:29→21:31)
[2020-12-04] MEDS ORDERED: SODIUM CHLORIDE 0.9% 250 ML IV ONE (08:34)
[2020-12-04 11:33] VITALS: BP 102/54
[2020-12-04 15:32] VITALS: BP 122/71
[2020-12-04 20:40] VITALS: BP 133/73
[2020-12-04] MEDS: TAMSULOSIN HCL 0.4 MG CAPSULE PO SCH (21:31)
[2020-12-04 23:42] VITALS: BP 128/70
[2020-12-05] MEDS: PIPERACILLIN/TAZO 3.375 GM/D5W 50 ML IV SCH ×3 (03:27→14:42)
[2020-12-05 04:16] VITALS: BP 134/82
[2020-12-05] MEDS: CARBIDOPA/LEVODOPA 25-100 MG TABLET PO SCH ×2 (06:38→12:26)
[2020-12-05 07:57] VITALS: BP 106/61
[2020-12-05] MEDS: LACTOBACILLUS ACIDOPHILUS/BULGARICUS TABLET PO SCH (08:10)
[2020-12-05] MEDS: FAMOTIDINE 20 MG TABLET PO SCH (08:10)
[2020-12-05] MEDS: DOCUSATE SODIUM 100 MG CAPSULE PO SCH (09:41)
[2020-12-05 11:19] VITALS: BP 109/60
== END 2020-12-05 16:25 | disposition home health service (06) | DRG 871 ==
LOC: EMS 17:24 → 5N 11-25 06:58 → 5S 11-28 18:24
PROVIDERS: ADMIT Internal Medicine; ATTEND Internal Medicine
DX: A41.9 Sepsis, unspecified organism (principal); J69.0 Pneumonitis due to inhalation of food and vomit; N39.0 Urinary tract infection, site not specified; F02.80 Dementia in other diseases classified elsewhere, unspecified severity, without behavioral disturbance, psychotic disturbance, mood disturbance, and anxiety; G20 Parkinson's disease; R65.20 Severe sepsis without septic shock; Z20.822 Contact with and (suspected) exposure to COVID-19; N40.0 Benign prostatic hyperplasia without lower urinary tract symptoms; D63.8 Anemia in other chronic diseases classified elsewhere; Z79.899 Other long term (current) drug therapy; Z78.9 Other specified health status; Z85.46 Personal history of malignant neoplasm of prostate; Z87.01 Personal history of pneumonia (recurrent)
CPT/HCPCS: 36569; 36600; 71045; 74230; 80048; 80053; 81001; 81003; 82550; 82805; 83036; 83605; 83880; 84145; 84484; 85025; 85379; 85610; 85730; 87040; 87086; 87804; 92526; 92610; 92611; 93005; 97110; 97116; 97162; 97166; 97530; 97535; 99285; J0131; J0456; J0696; J1644; J2543; J3490; J3535; J7030; J7050; J7060; 36415-L1; 36415-TC; U0003

== ENCOUNTER → 2021-04-11 | Outpatient (CLI) | payer MEDICARE, OTHER ==
[~2021-04-11] MED LIST changes: +ASPI-1450 PO; -CARB-102 PO; +CARB-107 PO; +ESCI-8 PO; +FLUT1BLS IH; +LEVO750T68 PO; +QUET25TA PO; +[UNRECOGNIZED DRUG - CODE] PO
== END | disposition home or self-care (01) ==
LOC: RADMN 13:46
PROVIDERS: ATTEND Internal Medicine Pulmonary Disease
DX: J47.9 Bronchiectasis, uncomplicated (principal); J98.4 Other disorders of lung; R91.8 Other nonspecific abnormal finding of lung field
CPT/HCPCS: 71250

== ENCOUNTER 2021-06-04 13:15 | Inpatient (IN) | payer MEDICARE, OTHER ==
[~2021-06-04] VITALS: Ht 160 cm; Wt 40.9 kg
[2021-06-04] MEDS ORDERED: SODIUM CHLORIDE 0.9% 1,000 ML IV ONE (14:00)
[2021-06-04] MEDS ORDERED: IPRATROPIUM BROMIDE 0.5 MG/2.5 ML NEB SOLUTION NEB ONE (14:00)
[2021-06-04] MEDS ORDERED: ALBUTEROL SULFATE 2.5 MG/0.5 ML NEB SOLUTION NEB ONE (14:00)
[2021-06-04] MEDS ORDERED: PIPERACILLIN/TAZO 3.375 GM/D5W 50 ML IV ONE (14:00)
[2021-06-04] MEDS: OXYGEN THERAPY IH SCH ×2 (14:01→20:39)
[2021-06-04 14:03] LABS: HEMATOCRIT 48.7 % (41-53); HEMOGLOBIN 15.6 g/dL (13.5-17.5); MEAN CORPUSCULAR HEMOGLOBIN 29.8 pg (26.0-34.0); MEAN CORPUSCULAR VOLUME 93 fL (80-100); PLATELET COUNT (AUTO) 306 K/uL (150-450); RED BLOOD CELL COUNT(AUTO) 5.24 MIL/uL (4.50-5.90); RED CELL DISTRIBUTION WIDTH 16.1 % (11.5-14.5)
[2021-06-04 14:08] LABS: ABG BASE EXCESS -4.2 mmol/L (-2.0-3.0); ABG CARBOXYHEMOGLOBIN 0.5 % (0.0-1.5); ABG HCO3 21.7 mmol/L (22.0-26.0); ABG METHEMOGLOBIN 0.3 % (0.0-1.5); ABG OXYGEN CONTENT 20.9 mL/dL (15.0-23.0); ABG OXYGEN SATURATION 99.5 % (95.0-98.0); ABG OXYHEMOGLOBIN 98.7 % (94.0-100.0); ABG PCO2 34 mmHg (35-45); ABG PH 7.399 (7.35-7.450); ABG TOTAL HEMOGLOBIN 14.6 G/dL (12.0-18.0); PO2, ARTERIAL BG 266.4 mmHg (71.0-79.0); SOURCE, BLOOD GAS ARTERIAL; TEMPERATURE, FAHRENHEIT, BG 98.5 FAHREN (96.0-98.6)
[2021-06-04 14:09] LABS: ABG A-A DIFF O2 412.8 mmHg (10-20.0); O2 DEVICE,BLOOD GAS NON REBREATHER (ROOM AIR); SITE, BLOOD GAS LFT BRACHIAL
[2021-06-04 14:22] LABS: BAND NEUTROPHILS % (MANUAL) 10 % (0-5); LYMPHOCYTES % (MANUAL) 3 % (22-44); MONOCYTES % (MANUAL) 1 % (2-9); SEGMENTED NEUTROPHILS % 86 % (40-70)
[2021-06-04 14:25] LABS: ALANINE AMINOTRANSFERASE 12 U/L (12-78); ALBUMIN 3.2 g/dL (3.4-5.0); ALKALINE PHOSPHATASE 135 U/L (46-116); ANION GAP 19 mmol/L (8-16); ASPARTATE AMINOTRANSFERASE 53 U/L (15-37); CALCIUM, TOTAL 11.1 mg/dL (8.8-10.5); CARBON DIOXIDE 23 mmol/L (22-29); CHLORIDE 119 mmol/L (98-107); CREATININE 3.23 mg/dL (0.60-1.30); GLOMERULAR FILTR. RATE CALC 18 mL/min (>60); GLUCOSE,RANDOM 105 mg/dL (70-110); POTASSIUM 5.5 mmol/L (3.5-5.1); TOTAL PROTEIN, SERUM 9.7 g/dL (6.4-8.2)
[2021-06-04 14:27] LABS: SODIUM SERUM 161 mmol/L (136-145); UREA NITROGEN, BLOOD 121 mg/dL (7-18)
[2021-06-04 14:42] LABS: B-TYPE NATRIURETIC PEPTIDE 562 pg/mL (0-100)
[2021-06-04 14:44] LABS: COVID AG,FIA SOURCE NASOPHARYNGEAL
[2021-06-04 14:55] LABS: LACTIC ACID 4.9 mmol/L (0.4-2.0)
[2021-06-04 15:08] LABS: INFLUENZA TYPE A NEGATIVE FOR TYPE A (NEGATIVE); INFLUENZA TYPE B NEGATIVE FOR TYPE B (NEGATIVE)
[2021-06-04] MEDS ORDERED: ONDANSETRON HCL 4 MG/2 ML VIAL IVP PRN ×2 (15:45→16:00)
[2021-06-04] MEDS ORDERED: DEXTROSE 5%-WATER 1,000 ML IV ONE ×2 (15:45→16:00)
[2021-06-04] MEDS ORDERED: 0.9% SODIUM CHLORIDE 10 ML SYRINGE IVP PRN (15:45)
[2021-06-04] MEDS ORDERED: ZOLPIDEM TARTRATE 5 MG TABLET PO PRN (16:00)
[2021-06-04] MEDS ORDERED: BISACODYL 10 MG RECTAL RECTAL SUPPOSITORY PR PRN (16:00)
[2021-06-04] MEDS ORDERED: ALBUTEROL SULFATE 2.5 MG/0.5 ML NEB SOLUTION NEB PRN (16:00)
[2021-06-04] MEDS ORDERED: MAGNESIUM HYDROXIDE SUSPENSION 30 ML UDCUP PO PRN (16:00)
[2021-06-04] MEDS ORDERED: ACETAMINOPHEN 325 MG TABLET PO PRN (16:00)
[2021-06-04] MEDS ORDERED: HYDROCODONE/ACETAMINOPHEN 5-325 MG TABLET PO PRN (16:00)
[2021-06-04] MEDS ORDERED: LORazepam 2 MG/ML VIAL IVP ONE (16:15)
[2021-06-04 17:00] VITALS: BP 100/75
[2021-06-04] MEDS: DOCUSATE SODIUM 100 MG CAPSULE PO SCH (19:39)
[2021-06-04] MEDS: CARBIDOPA/LEVODOPA 25-250 MG TABLET PO SCH (19:39)
[2021-06-04] MEDS: PIPERACILLIN SODIUM/TAZOBACTAM 2.25 GM in DEXTROSE 5%-WATER 50 ML IV SCH (20:38)
[2021-06-04] MEDS: MORPHINE SULFATE 2 MG/ML SYRINGE IVP PRN (20:39)
[2021-06-04] MEDS: DEXTROSE 5%-WATER 1,000 ML IV SCH (21:57)
[2021-06-04 23:10] VITALS: BP 101/61
[2021-06-05 01:21] VITALS: BP 105/60
[2021-06-05 04:00] VITALS: BP 103/57
[2021-06-05] MEDS: DEXTROSE 5%-WATER 1,000 ML IV SCH (04:57)
[2021-06-05] MEDS: PIPERACILLIN SODIUM/TAZOBACTAM 2.25 GM in DEXTROSE 5%-WATER 50 ML IV SCH ×3 (04:57→21:31)
[2021-06-05] MEDS: MORPHINE SULFATE 2 MG/ML SYRINGE IVP PRN (05:55)
[2021-06-05 07:21] LABS: HEMATOCRIT 43.4 % (41-53); HEMOGLOBIN 14.2 g/dL (13.5-17.5); MEAN CORPUSCULAR HEMOGLOBIN 30.4 pg (26.0-34.0); MEAN CORPUSCULAR HGB CONC 32.7 G/dL (31.0-37.0); MEAN CORPUSCULAR VOLUME 93 fL (80-100); PLATELET COUNT (AUTO) 237 K/uL (150-450); RED BLOOD CELL COUNT(AUTO) 4.67 MIL/uL (4.50-5.90); RED CELL DISTRIBUTION WIDTH 15.9 % (11.5-14.5)
[2021-06-05 07:29] LABS: BILIRUBIN,TOTAL 1.4 mg/dL (0.1-1.0); CALCIUM, TOTAL 10.1 mg/dL (8.8-10.5); CREATININE 2.54 mg/dL (0.60-1.30); POTASSIUM 3.8 mmol/L (3.5-5.1); TOTAL PROTEIN, SERUM 8.5 g/dL (6.4-8.2)
[2021-06-05 07:48] LABS: ALBUMIN 2.8 g/dL (3.4-5.0)
[2021-06-05] MEDS: OXYGEN THERAPY IH SCH ×2 (08:00→20:35)
[2021-06-05 08:28] LABS: BAND NEUTROPHILS % (MANUAL) 19 % (0-5); LYMPHOCYTES % (MANUAL) 11 % (22-44); MONOCYTES % (MANUAL) 1 % (2-9); SEGMENTED NEUTROPHILS % 69 % (40-70)
[2021-06-05 08:46] VITALS: BP 112/64
[2021-06-05] MEDS ORDERED: DEXTROSE 5%-WATER 1,000 ML IV SCH (12:00)
[2021-06-05 12:13] VITALS: BP 101/55
[2021-06-05] MEDS: ASPIRIN 81 MG CHEWABLE TABLET PO SCH (14:45)
[2021-06-05] MEDS: DOCUSATE SODIUM 100 MG CAPSULE PO SCH ×2 (14:45→20:35)
[2021-06-05] MEDS: PANTOPRAZOLE SODIUM 40 MG DR TABLET PO SCH (14:45)
[2021-06-05] MEDS: TAMSULOSIN HCL 0.4 MG CAPSULE PO SCH (14:45)
[2021-06-05] MEDS: CARBIDOPA/LEVODOPA 25-250 MG TABLET PO SCH ×3 (14:46→20:35)
[2021-06-05] MEDS: FLUTICASONE/VILANTEROL 200-25 MCG/INH INHALER [14] IH SCH (14:46)
[2021-06-05] MEDS: MVI, ADULT NO.1 WITH VIT K 10 ML in DEXTROSE 5%-WATER 1,000 ML IV SCH ×2 (14:47)
[2021-06-05 16:03] VITALS: BP 103/59
[2021-06-06] VITALS (7 sets, daily range): BP systolic 92–105; BP diastolic 50–67
[2021-06-06] MEDS: MVI, ADULT NO.1 WITH VIT K 10 ML in DEXTROSE 5%-WATER 1,000 ML IV SCH ×6 (01:52→20:22)
[2021-06-06] MEDS: PIPERACILLIN SODIUM/TAZOBACTAM 2.25 GM in DEXTROSE 5%-WATER 50 ML IV SCH ×3 (05:56→21:31)
[2021-06-06 07:06] LABS: BASOPHILS % (AUTO) 0.1 % (0.0-2.0); LYMPHOCYTES # (AUTO) 0.4 K/uL (1.0-4.8); MEAN CORPUSCULAR VOLUME 93 fL (80-100); MONOCYTES # (AUTO) 0.4 K/uL (0.1-1.0); PLATELET COUNT (AUTO) 207 K/uL (150-450)
[2021-06-06 07:17] LABS: EOSINOPHILS % (AUTO) 0.2 % (1.0-6.0); HEMATOCRIT 40.2 % (41-53); LYMPHOCYTES % (AUTO) 2.5 % (22.0-44.0); MEAN CORPUSCULAR HEMOGLOBIN 29.9 pg (26.0-34.0); MEAN CORPUSCULAR HGB CONC 32.3 G/dL (31.0-37.0); MONOCYTES % (AUTO) 2.7 % (2.0-9.0); RED BLOOD CELL COUNT(AUTO) 4.35 MIL/uL (4.50-5.90); RED CELL DISTRIBUTION WIDTH 15.8 % (11.5-14.5)
[2021-06-06 07:24] LABS: NEUTROPHILS % (AUTO) 94.5 % (40.0-70.0)
[2021-06-06 07:31] LABS: CALCIUM, TOTAL 9.6 mg/dL (8.8-10.5); CREATININE 2.25 mg/dL (0.60-1.30); POTASSIUM 3.5 mmol/L (3.5-5.1)
[2021-06-06] MEDS: OXYGEN THERAPY IH SCH ×2 (08:30→20:21)
[2021-06-06] MEDS: FLUTICASONE/VILANTEROL 200-25 MCG/INH INHALER [14] IH SCH (08:30)
[2021-06-06] MEDS: CARBIDOPA/LEVODOPA 25-250 MG TABLET PO SCH ×3 (08:31→20:23)
[2021-06-06] MEDS: PANTOPRAZOLE SODIUM 40 MG DR TABLET PO SCH (08:31)
[2021-06-06] MEDS: ASPIRIN 81 MG CHEWABLE TABLET PO SCH (08:31)
[2021-06-06] MEDS: DOCUSATE SODIUM 100 MG CAPSULE PO SCH ×2 (08:31→20:22)
[2021-06-06] MEDS: TAMSULOSIN HCL 0.4 MG CAPSULE PO SCH (08:32)
[2021-06-06 17:47] LABS: ALBUMIN 1.9 g/dL (3.4-5.0); BILIRUBIN,DIRECT 0.4 mg/dL (0.00-0.20); BILIRUBIN,TOTAL 1.2 mg/dL (0.1-1.0); TOTAL PROTEIN, SERUM 6.8 g/dL (6.4-8.2)
[2021-06-06 18:14] LABS: PROTHROMBIN TIME 11.1 SEC (9.4-11.6)
[2021-06-06] MEDS: FLUTICASONE PROPIONATE 50 MCG/SPRAY 16 GM NASAL SPRAY NASAL SCH (20:21)
[2021-06-07 03:35] VITALS: BP 119/68
[2021-06-07] MEDS: MVI, ADULT NO.1 WITH VIT K 10 ML in DEXTROSE 5%-WATER 1,000 ML IV SCH ×4 (06:22→18:00)
[2021-06-07] MEDS: PIPERACILLIN SODIUM/TAZOBACTAM 2.25 GM in DEXTROSE 5%-WATER 50 ML IV SCH ×3 (06:22→21:45)
[2021-06-07 07:47] LABS: CALCIUM, TOTAL 9.6 mg/dL (8.8-10.5); CREATININE 1.81 mg/dL (0.60-1.30); POTASSIUM 3.7 mmol/L (3.5-5.1)
[2021-06-07 08:09] VITALS: BP 128/68
[2021-06-07] MEDS: ASPIRIN 81 MG CHEWABLE TABLET PO SCH (08:56)
[2021-06-07] MEDS: CARBIDOPA/LEVODOPA 25-250 MG TABLET PO SCH ×2 (08:56→21:00)
[2021-06-07] MEDS: PANTOPRAZOLE SODIUM 40 MG DR TABLET PO SCH (08:56)
[2021-06-07] MEDS: TAMSULOSIN HCL 0.4 MG CAPSULE PO SCH (08:57)
[2021-06-07] MEDS: DOCUSATE SODIUM 100 MG CAPSULE PO SCH ×2 (08:58→21:13)
[2021-06-07] MEDS: OXYGEN THERAPY IH SCH ×2 (08:58→21:14)
[2021-06-07] MEDS: FLUTICASONE PROPIONATE 50 MCG/SPRAY 16 GM NASAL SPRAY NASAL SCH ×2 (08:59→21:13)
[2021-06-07] MEDS: FLUTICASONE/VILANTEROL 200-25 MCG/INH INHALER [14] IH SCH (09:00)
[2021-06-07 09:13] LABS: BASOPHILS % (AUTO) 0.1 % (0.0-2.0); EOSINOPHILS % (AUTO) 0.5 % (1.0-6.0); HEMATOCRIT 41.4 % (41-53); HEMOGLOBIN 13.5 g/dL (13.5-17.5); LYMPHOCYTES # (AUTO) 0.6 K/uL (1.0-4.8); LYMPHOCYTES % (AUTO) 4.4 % (22.0-44.0); MEAN CORPUSCULAR HEMOGLOBIN 29.8 pg (26.0-34.0); MEAN CORPUSCULAR HGB CONC 32.6 G/dL (31.0-37.0); MEAN CORPUSCULAR VOLUME 92 fL (80-100); MONOCYTES # (AUTO) 0.5 K/uL (0.1-1.0); MONOCYTES % (AUTO) 3.6 % (2.0-9.0); NEUTROPHILS # (AUTO) 11.8 K/uL (1.8-7.7); PLATELET COUNT (AUTO) 166 K/uL (150-450); RED BLOOD CELL COUNT(AUTO) 4.52 MIL/uL (4.50-5.90); RED CELL DISTRIBUTION WIDTH 15.6 % (11.5-14.5)
[2021-06-07 09:14] LABS: NEUTROPHILS % (AUTO) 91.4 % (40.0-70.0)
[2021-06-07 11:54] VITALS: BP 112/48
[2021-06-07 15:39] VITALS: BP 106/54
[2021-06-07] MEDS ORDERED: SODIUM CHLORIDE 0.9% 100 ML ONE (16:50)
[2021-06-07 19:50] VITALS: BP 98/52
[2021-06-08 00:35] VITALS: BP 98/59
[2021-06-08 04:40] VITALS: BP 129/64
[2021-06-08] MEDS: PIPERACILLIN SODIUM/TAZOBACTAM 2.25 GM in DEXTROSE 5%-WATER 50 ML IV SCH ×3 (05:21→21:13)
[2021-06-08] MEDS: MVI, ADULT NO.1 WITH VIT K 10 ML in DEXTROSE 5%-WATER 1,000 ML IV SCH ×4 (05:22→18:01)
[2021-06-08] MEDS: OXYGEN THERAPY IH SCH ×2 (08:00→21:12)
[2021-06-08 08:49] LABS: CALCIUM, TOTAL 9.5 mg/dL (8.8-10.5); CREATININE 1.67 mg/dL (0.60-1.30)
[2021-06-08 08:57] LABS: POTASSIUM 2.7 mmol/L (3.5-5.1)
[2021-06-08] MEDS: ASPIRIN 81 MG CHEWABLE TABLET PO SCH (09:00)
[2021-06-08] MEDS: DOCUSATE SODIUM 100 MG CAPSULE PO SCH ×2 (09:00→21:14)
[2021-06-08] MEDS: CARBIDOPA/LEVODOPA 25-250 MG TABLET PO SCH ×3 (09:00→21:13)
[2021-06-08] MEDS: FLUTICASONE PROPIONATE 50 MCG/SPRAY 16 GM NASAL SPRAY NASAL SCH ×2 (09:00→21:14)
[2021-06-08] MEDS: FLUTICASONE/VILANTEROL 200-25 MCG/INH INHALER [14] IH SCH (09:00)
[2021-06-08] MEDS: TAMSULOSIN HCL 0.4 MG CAPSULE PO SCH (09:00)
[2021-06-08] MEDS: PANTOPRAZOLE SODIUM 40 MG DR TABLET PO SCH (09:00)
[2021-06-08 09:40] VITALS: BP 114/59
[2021-06-08] MEDS: POTASSIUM CHL 10 MEQ/WATER 50 ML IV SCH ×8 (09:58→18:02)
[2021-06-08 10:21] LABS: GLUCOMETER DEV NAME(LOC) 5S.2B; GLUCOSE,POINT OF CARE 121 MG/DL (70-110)
[2021-06-08 13:41] VITALS: BP 120/60
[2021-06-08 18:06] VITALS: BP 120/60
[2021-06-08 19:18] VITALS: BP 117/65
[2021-06-09 00:20] VITALS: BP 93/51
[2021-06-09 04:03] VITALS: BP 123/60
[2021-06-09] MEDS: PIPERACILLIN SODIUM/TAZOBACTAM 2.25 GM in DEXTROSE 5%-WATER 50 ML IV SCH ×3 (05:49→22:18)
[2021-06-09] MEDS ORDERED: BISACODYL 10 MG RECTAL RECTAL SUPPOSITORY PR PRN (06:30)
[2021-06-09] MEDS ORDERED: MINERAL OIL 133 ML ENEMA PR ONE ×2 (06:30→08:00)
[2021-06-09] MEDS: FLUTICASONE/VILANTEROL 200-25 MCG/INH INHALER [14] IH SCH (08:40)
[2021-06-09] MEDS: FLUTICASONE PROPIONATE 50 MCG/SPRAY 16 GM NASAL SPRAY NASAL SCH ×2 (08:40→21:00)
[2021-06-09] MEDS: OXYGEN THERAPY IH SCH ×2 (08:41→20:50)
[2021-06-09] MEDS ORDERED: SODIUM CHLORIDE 0.9% 250 ML IV ONE (08:45)
[2021-06-09 08:50] LABS: CALCIUM, TOTAL 9.5 mg/dL (8.8-10.5); CREATININE 1.66 mg/dL (0.60-1.30); MAGNESIUM 1.9 mg/dL (1.80-2.40); POTASSIUM 3.8 mmol/L (3.5-5.1)
[2021-06-09] MEDS ORDERED: CeFAZolin 1 GM/DEXTROSE 50 ML IV ONE (09:00)
[2021-06-09] MEDS: PANTOPRAZOLE SODIUM 40 MG DR TABLET PO SCH (09:00)
[2021-06-09] MEDS: TAMSULOSIN HCL 0.4 MG CAPSULE PO SCH (09:00)
[2021-06-09] MEDS: ASPIRIN 81 MG CHEWABLE TABLET PO SCH (09:00)
[2021-06-09] MEDS: DOCUSATE SODIUM 100 MG CAPSULE PO SCH ×2 (09:00→21:00)
[2021-06-09] MEDS: CARBIDOPA/LEVODOPA 25-250 MG TABLET PO SCH ×3 (09:00→21:00)
[2021-06-09] MEDS ORDERED: SODIUM CHLORIDE 0.9% 1,000 ML ONE (09:29)
[2021-06-09] MEDS ORDERED: MORPHINE SULFATE 2 MG/ML SYRINGE IVP ONE ×2 (13:45→16:00)
[2021-06-09] MEDS: MethylPREDNISolone SOD SUCC 125 MG/2 ML VIAL IVP SCH ×3 (13:47→23:40)
[2021-06-09 14:05] LABS: ABG CARBOXYHEMOGLOBIN 0.4 % (0.0-1.5); ABG HCO3 18.9 mmol/L (22.0-26.0); ABG METHEMOGLOBIN 0.4 % (0.0-1.5); ABG OXYGEN CONTENT 19.2 mL/dL (15.0-23.0); ABG OXYHEMOGLOBIN 98.2 % (94.0-100.0); ABG PCO2 33 mmHg (35-45); ABG PH 7.348 (7.35-7.450); ABG TOTAL HEMOGLOBIN 13.7 G/dL (12.0-18.0); PO2, ARTERIAL BG 172.5 mmHg (71.0-79.0); SOURCE, BLOOD GAS ARTERIAL; TEMPERATURE, FAHRENHEIT, BG 97.8 FAHREN (96.0-98.6)
[2021-06-09 14:06] LABS: ABG A-A DIFF O2 172.5 mmHg (10-20.0); SITE, BLOOD GAS LFT BRACHIAL
[2021-06-09 14:07] LABS: INSPIRATORY TIME, BG 0.9 SEC; O2 DEVICE,BLOOD GAS BIPAP (ROOM AIR); SPONTANEOUS VT, BG 569 ml
[2021-06-09 16:07] VITALS: BP 96/53
[2021-06-09] MEDS ORDERED: NOREPINEPHRINE 4 MG/D5%-WATER 250 ML IV PRN (16:45)
[2021-06-09] MEDS ORDERED: ROCURONIUM BROMIDE 10 MG/ML 5 ML VIAL IVP ONE (16:45)
[2021-06-09] MEDS ORDERED: ETOMIDATE 2 MG/ML 10 ML VIAL IVP ONE (16:45)
[2021-06-09] MEDS ORDERED: RAPID SEQUENCE KIT [RSI] 1 EACH KIT MISC ONE (16:47)
[2021-06-09] MEDS ORDERED: SODIUM CHLORIDE 0.9% 500 ML IV ONE (16:48)
[2021-06-09] MEDS ORDERED: RINGERS SOLUTION,LACTATED 500 ML IV ONE (19:00)
[2021-06-09 20:00] VITALS: BP 97/60
[2021-06-09] MEDS ORDERED: 0.9% SODIUM CHLORIDE 5 ML NEB SOLUTION NEB ONE (20:28)
[2021-06-09] MEDS: ALBUTEROL SULFATE 2.5 MG/0.5 ML NEB SOLUTION NEB SCH (20:38)
[2021-06-09] MEDS: MORPHINE SULFATE 2 MG/ML SYRINGE IVP PRN (21:10)
[2021-06-10] VITALS: BP 101/60
[2021-06-10] MEDS: MORPHINE SULFATE 2 MG/ML SYRINGE IVP PRN ×4 (01:10→13:36)
[2021-06-10] MEDS ORDERED: 0.9% SODIUM CHLORIDE 5 ML NEB SOLUTION NEB ONE ×4 (02:02→19:38)
[2021-06-10] MEDS: ALBUTEROL SULFATE 2.5 MG/0.5 ML NEB SOLUTION NEB SCH ×4 (02:12→19:41)
[2021-06-10 04:00] VITALS: BP 109/58
[2021-06-10] MEDS: MethylPREDNISolone SOD SUCC 125 MG/2 ML VIAL IVP SCH ×3 (06:05→18:17)
[2021-06-10] MEDS: PIPERACILLIN SODIUM/TAZOBACTAM 2.25 GM in DEXTROSE 5%-WATER 50 ML IV SCH ×3 (06:06→21:33)
[2021-06-10 06:33] LABS: BASOPHILS % (AUTO) 0.1 % (0.0-2.0); EOSINOPHILS % (AUTO) 0 % (1.0-6.0); HEMOGLOBIN 13.4 g/dL (13.5-17.5); LYMPHOCYTES # (AUTO) 0.3 K/uL (1.0-4.8); LYMPHOCYTES % (AUTO) 1.4 % (22.0-44.0); MEAN CORPUSCULAR HEMOGLOBIN 30.4 pg (26.0-34.0); MEAN CORPUSCULAR HGB CONC 33.4 G/dL (31.0-37.0); MEAN CORPUSCULAR VOLUME 91 fL (80-100); MONOCYTES # (AUTO) 0.2 K/uL (0.1-1.0); MONOCYTES % (AUTO) 0.9 % (2.0-9.0); NEUTROPHILS # (AUTO) 22.9 K/uL (1.8-7.7); PLATELET COUNT (AUTO) 179 K/uL (150-450); RED BLOOD CELL COUNT(AUTO) 4.39 MIL/uL (4.50-5.90); RED CELL DISTRIBUTION WIDTH 15.6 % (11.5-14.5)
[2021-06-10 06:40] LABS: CALCIUM, TOTAL 9.1 mg/dL (8.8-10.5); CREATININE 1.53 mg/dL (0.60-1.30); POTASSIUM 4.6 mmol/L (3.5-5.1)
[2021-06-10 06:42] LABS: NEUTROPHILS % (AUTO) 97.6 % (40.0-70.0)
[2021-06-10] MEDS: OXYGEN THERAPY IH SCH ×2 (07:17→20:43)
[2021-06-10 08:00] VITALS: BP 97/48
[2021-06-10] MEDS: FLUTICASONE PROPIONATE 50 MCG/SPRAY 16 GM NASAL SPRAY NASAL SCH ×2 (09:00→21:50)
[2021-06-10] MEDS: CARBIDOPA/LEVODOPA 25-250 MG TABLET PO SCH ×3 (09:00→20:44)
[2021-06-10] MEDS: ASPIRIN 81 MG CHEWABLE TABLET PO SCH (09:00)
[2021-06-10] MEDS: PANTOPRAZOLE SODIUM 40 MG DR TABLET PO SCH (09:00)
[2021-06-10] MEDS: TAMSULOSIN HCL 0.4 MG CAPSULE PO SCH (09:00)
[2021-06-10] MEDS: DOCUSATE SODIUM 100 MG CAPSULE PO SCH ×2 (09:00→20:44)
[2021-06-10] MEDS ORDERED: MORPHINE SULFATE 2 MG/ML SYRINGE IVP PRN (11:30)
[2021-06-10] MEDS: DEXTROSE 5%-WATER 1,000 ML IV SCH (11:35)
[2021-06-10 12:00] VITALS: BP 87/47
[2021-06-10] MEDS: LORazepam 2 MG/ML VIAL IVP PRN ×2 (13:35→21:50)
[2021-06-10 16:00] VITALS: BP 97/49
[2021-06-10 20:00] VITALS: BP 93/53
[2021-06-11] VITALS: BP 86/49
[2021-06-11] MEDS: MethylPREDNISolone SOD SUCC 125 MG/2 ML VIAL IVP SCH ×4 (01:46→17:54)
[2021-06-11] MEDS ORDERED: 0.9% SODIUM CHLORIDE 5 ML NEB SOLUTION NEB ONE ×4 (02:28→20:09)
[2021-06-11] MEDS: ALBUTEROL SULFATE 2.5 MG/0.5 ML NEB SOLUTION NEB SCH ×4 (02:28→20:16)
[2021-06-11 04:00] VITALS: BP 105/48
[2021-06-11 05:25] LABS: BASOPHILS % (AUTO) 0.1 % (0.0-2.0); EOSINOPHILS % (AUTO) 0 % (1.0-6.0); HEMATOCRIT 33.4 % (41-53); LYMPHOCYTES # (AUTO) 0.2 K/uL (1.0-4.8); LYMPHOCYTES % (AUTO) 0.5 % (22.0-44.0); MEAN CORPUSCULAR HEMOGLOBIN 29.9 pg (26.0-34.0); MEAN CORPUSCULAR HGB CONC 32.9 G/dL (31.0-37.0); MEAN CORPUSCULAR VOLUME 91 fL (80-100); MONOCYTES # (AUTO) 0.3 K/uL (0.1-1.0); MONOCYTES % (AUTO) 1.1 % (2.0-9.0); NEUTROPHILS # (AUTO) 29.2 K/uL (1.8-7.7); PLATELET COUNT (AUTO) 243 K/uL (150-450); RED BLOOD CELL COUNT(AUTO) 3.68 MIL/uL (4.50-5.90); RED CELL DISTRIBUTION WIDTH 15.4 % (11.5-14.5)
[2021-06-11 05:31] LABS: NEUTROPHILS % (AUTO) 98.3 % (40.0-70.0)
[2021-06-11 05:49] LABS: CALCIUM, TOTAL 8.6 mg/dL (8.8-10.5); CREATININE 1.51 mg/dL (0.60-1.30); POTASSIUM 3.4 mmol/L (3.5-5.1)
[2021-06-11] MEDS: PIPERACILLIN SODIUM/TAZOBACTAM 2.25 GM in DEXTROSE 5%-WATER 50 ML IV SCH ×3 (06:34→22:52)
[2021-06-11] MEDS: DEXTROSE 5%-WATER 1,000 ML IV SCH (07:29)
[2021-06-11 08:00] VITALS: BP 99/48
[2021-06-11] MEDS: OXYGEN THERAPY IH SCH ×2 (08:00→20:02)
[2021-06-11] MEDS: FLUTICASONE PROPIONATE 50 MCG/SPRAY 16 GM NASAL SPRAY NASAL SCH ×2 (08:21→20:02)
[2021-06-11] MEDS: TAMSULOSIN HCL 0.4 MG CAPSULE PO SCH (08:22)
[2021-06-11] MEDS: PANTOPRAZOLE SODIUM 40 MG DR TABLET PO SCH (08:22)
[2021-06-11] MEDS: CARBIDOPA/LEVODOPA 25-250 MG TABLET PO SCH ×3 (08:22→20:02)
[2021-06-11] MEDS: ASPIRIN 81 MG CHEWABLE TABLET PO SCH (08:22)
[2021-06-11] MEDS: DOCUSATE SODIUM 100 MG CAPSULE PO SCH ×2 (08:22→20:02)
[2021-06-11] MEDS: FLUTICASONE/VILANTEROL 200-25 MCG/INH INHALER [14] IH SCH (08:23)
[2021-06-11] MEDS: MORPHINE SULFATE 2 MG/ML SYRINGE IVP PRN (10:39)
[2021-06-11] MEDS: LORazepam 2 MG/ML VIAL IVP PRN ×2 (11:48→20:01)
[2021-06-11 12:00] VITALS: BP 111/64
[2021-06-11] MEDS ORDERED: POTASSIUM CHL 10 MEQ/WATER 50 ML IV ONE (12:00)
[2021-06-11 16:00] VITALS: BP 111/46
[2021-06-11 20:00] VITALS: BP 109/49
[2021-06-12] VITALS: BP 108/45
[2021-06-12] MEDS: MethylPREDNISolone SOD SUCC 125 MG/2 ML VIAL IVP SCH ×5 (00:42→23:46)
[2021-06-12] MEDS ORDERED: 0.9% SODIUM CHLORIDE 5 ML NEB SOLUTION NEB ONE ×4 (01:50→20:16)
[2021-06-12] MEDS: ALBUTEROL SULFATE 2.5 MG/0.5 ML NEB SOLUTION NEB SCH ×4 (01:53→20:21)
[2021-06-12 04:00] VITALS: BP 124/54
[2021-06-12] MEDS: DEXTROSE 5%-WATER 1,000 ML IV SCH ×2 (04:07→23:46)
[2021-06-12] MEDS: LORazepam 2 MG/ML VIAL IVP PRN (04:08)
[2021-06-12 05:07] LABS: BASOPHILS % (AUTO) 0.1 % (0.0-2.0); EOSINOPHILS % (AUTO) 0 % (1.0-6.0); HEMATOCRIT 30.1 % (41-53); HEMOGLOBIN 9.9 g/dL (13.5-17.5); LYMPHOCYTES # (AUTO) 0.1 K/uL (1.0-4.8); LYMPHOCYTES % (AUTO) 0.3 % (22.0-44.0); MEAN CORPUSCULAR HEMOGLOBIN 29.5 pg (26.0-34.0); MEAN CORPUSCULAR HGB CONC 32.8 G/dL (31.0-37.0); MEAN CORPUSCULAR VOLUME 90 fL (80-100); MONOCYTES # (AUTO) 0.2 K/uL (0.1-1.0); MONOCYTES % (AUTO) 0.8 % (2.0-9.0); NEUTROPHILS # (AUTO) 27.5 K/uL (1.8-7.7); PLATELET COUNT (AUTO) 220 K/uL (150-450); RED BLOOD CELL COUNT(AUTO) 3.34 MIL/uL (4.50-5.90)
[2021-06-12 05:11] LABS: NEUTROPHILS % (AUTO) 98.8 % (40.0-70.0)
[2021-06-12 05:37] LABS: CALCIUM, TOTAL 8.6 mg/dL (8.8-10.5); CREATININE 1.53 mg/dL (0.60-1.30); PHOSPHORUS 3.2 mg/dL (2.5-4.9); POTASSIUM 3.3 mmol/L (3.5-5.1)
[2021-06-12] MEDS: MORPHINE SULFATE 2 MG/ML SYRINGE IVP PRN ×2 (05:43→20:36)
[2021-06-12] MEDS: PIPERACILLIN SODIUM/TAZOBACTAM 2.25 GM in DEXTROSE 5%-WATER 50 ML IV SCH ×3 (05:44→21:09)
[2021-06-12] MEDS: OXYGEN THERAPY IH SCH ×2 (07:34→20:35)
[2021-06-12 08:00] VITALS: BP 102/51
[2021-06-12] MEDS: FLUTICASONE PROPIONATE 50 MCG/SPRAY 16 GM NASAL SPRAY NASAL SCH ×2 (08:50→21:00)
[2021-06-12] MEDS: FLUTICASONE/VILANTEROL 200-25 MCG/INH INHALER [14] IH SCH (08:50)
[2021-06-12] MEDS: THIAMINE 100 MG/ML 2 ML VIAL IVP SCH (08:50)
[2021-06-12] MEDS: TAMSULOSIN HCL 0.4 MG CAPSULE PO SCH (08:51)
[2021-06-12] MEDS: ASPIRIN 81 MG CHEWABLE TABLET PO SCH (08:51)
[2021-06-12] MEDS: PANTOPRAZOLE SODIUM 40 MG DR TABLET PO SCH (08:52)
[2021-06-12] MEDS: CARBIDOPA/LEVODOPA 25-250 MG TABLET PO SCH ×3 (08:52→21:00)
[2021-06-12] MEDS: DOCUSATE SODIUM 100 MG CAPSULE PO SCH ×2 (09:00→21:00)
[2021-06-12 12:00] VITALS: BP 115/52
[2021-06-12] MEDS ORDERED: POTASSIUM CHL 10 MEQ/WATER 50 ML IV ONE (12:15)
[2021-06-12 16:00] VITALS: BP 112/57
[2021-06-12 20:00] VITALS: BP 136/65
[2021-06-13] VITALS: BP 125/55
[2021-06-13] MEDS ORDERED: 0.9% SODIUM CHLORIDE 5 ML NEB SOLUTION NEB ONE ×4 (01:55→19:50)
[2021-06-13] MEDS: ALBUTEROL SULFATE 2.5 MG/0.5 ML NEB SOLUTION NEB SCH ×4 (01:57→19:51)
[2021-06-13 04:00] VITALS: BP 138/59
[2021-06-13] MEDS: MethylPREDNISolone SOD SUCC 125 MG/2 ML VIAL IVP SCH ×3 (05:13→17:17)
[2021-06-13] MEDS: PIPERACILLIN SODIUM/TAZOBACTAM 2.25 GM in DEXTROSE 5%-WATER 50 ML IV SCH ×3 (05:13→18:04)
[2021-06-13] MEDS: MORPHINE SULFATE 2 MG/ML SYRINGE IVP PRN ×2 (05:14→20:08)
[2021-06-13 06:16] LABS: CREATININE 1.26 mg/dL (0.60-1.30); MAGNESIUM 2.9 mg/dL (1.80-2.40); PHOSPHORUS 3.3 mg/dL (2.5-4.9); POTASSIUM 4.4 mmol/L (3.5-5.1)
[2021-06-13] MEDS: DOCUSATE SODIUM 100 MG CAPSULE PO SCH (07:50)
[2021-06-13] MEDS: THIAMINE 100 MG/ML 2 ML VIAL IVP SCH (07:50)
[2021-06-13] MEDS: OXYGEN THERAPY IH SCH ×2 (07:50→20:08)
[2021-06-13] MEDS: ASPIRIN 81 MG CHEWABLE TABLET PO SCH (07:50)
[2021-06-13] MEDS: TAMSULOSIN HCL 0.4 MG CAPSULE PO SCH (07:51)
[2021-06-13] MEDS: PANTOPRAZOLE SODIUM 40 MG DR TABLET PO SCH (07:51)
[2021-06-13] MEDS: CARBIDOPA/LEVODOPA 25-250 MG TABLET PO SCH ×3 (07:51→20:10)
[2021-06-13 08:00] VITALS: BP 137/70
[2021-06-13 12:00] VITALS: BP 153/75
[2021-06-13] MEDS ORDERED: SODIUM CHLORIDE 0.9% 250 ML IV ONE (12:20)
[2021-06-13 16:00] VITALS: BP 140/68
[2021-06-13] MEDS ORDERED: VANCOMYCIN HCL 1 GM/D5% WATER 200 ML IV ONE (17:00)
[2021-06-13] MEDS ORDERED: ACETAMINOPHEN 650 MG RECTAL SUPPOSITORY PR PRN (17:00)
[2021-06-13] MEDS: DEXTROSE 5%-WATER 1,000 ML IV SCH (17:18)
[2021-06-13 20:00] VITALS: BP 143/74
[2021-06-13] MEDS: FLUTICASONE PROPIONATE 50 MCG/SPRAY 16 GM NASAL SPRAY NASAL SCH ×2 (20:00→21:33)
[2021-06-14] VITALS: BP 155/77
[2021-06-14] MEDS: MethylPREDNISolone SOD SUCC 125 MG/2 ML VIAL IVP SCH ×4 (00:24→17:51)
[2021-06-14] MEDS: PIPERACILLIN SODIUM/TAZOBACTAM 2.25 GM in DEXTROSE 5%-WATER 50 ML IV SCH ×4 (00:24→17:51)
[2021-06-14] MEDS: LORazepam 2 MG/ML VIAL IVP PRN (00:33)
[2021-06-14] MEDS ORDERED: 0.9% SODIUM CHLORIDE 5 ML NEB SOLUTION NEB ONE ×4 (01:46→19:26)
[2021-06-14] MEDS: ALBUTEROL SULFATE 2.5 MG/0.5 ML NEB SOLUTION NEB SCH ×4 (01:47→19:28)
[2021-06-14 04:00] VITALS: BP 160/81
[2021-06-14 05:47] LABS: ANION GAP 9 mmol/L (8-16); CALCIUM, TOTAL 9.1 mg/dL (8.8-10.5); CARBON DIOXIDE 24 mmol/L (22-29); CHLORIDE 107 mmol/L (98-107); CREATININE 0.94 mg/dL (0.60-1.30); GLUCOSE,RANDOM 198 mg/dL (70-110); PHOSPHORUS 2.9 mg/dL (2.5-4.9); POTASSIUM 3.8 mmol/L (3.5-5.1); SODIUM SERUM 140 mmol/L (136-145); UREA NITROGEN, BLOOD 32 mg/dL (7-18)
[2021-06-14 05:48] LABS: GLOMERULAR FILTR. RATE CALC > 60 mL/min (>60)
[2021-06-14] MEDS: OXYGEN THERAPY IH SCH (07:44)
[2021-06-14 08:00] VITALS: BP 161/79
[2021-06-14] MEDS: FLUTICASONE/VILANTEROL 200-25 MCG/INH INHALER [14] IH SCH (08:40)
[2021-06-14] MEDS: PANTOPRAZOLE SODIUM 40 MG/VIAL IVP SCH (08:41)
[2021-06-14] MEDS: ETHYL ALCOHOL 62% ANTISEPTIC NASAL INHALANT 0.6 ML AMPUL NASAL SCH ×2 (08:41→21:24)
[2021-06-14] MEDS: FLUTICASONE PROPIONATE 50 MCG/SPRAY 16 GM NASAL SPRAY NASAL SCH ×2 (08:41→21:24)
[2021-06-14] MEDS: THIAMINE 100 MG/ML 2 ML VIAL IVP SCH (08:41)
[2021-06-14] MEDS: CARBIDOPA/LEVODOPA 25-250 MG TABLET PO SCH ×3 (08:42→21:00)
[2021-06-14] MEDS: ASPIRIN 300 MG RECTAL SUPPOSITORY PR SCH (09:00)
[2021-06-14 12:00] VITALS: BP 103/59
[2021-06-14] MEDS ORDERED: *CLINICAL-PERIPHERAL PARENTERAL NUTRITION DOSING CLINICAL ONE (12:00)
[2021-06-14 12:05] LABS: BASOPHILS % (AUTO) 1.1 % (0.0-2.0); EOSINOPHILS % (AUTO) 0.2 % (1.0-6.0); HEMATOCRIT 32.8 % (41-53); HEMOGLOBIN 10.7 g/dL (13.5-17.5); LYMPHOCYTES # (AUTO) 0.2 K/uL (1.0-4.8); LYMPHOCYTES % (AUTO) 0.9 % (22.0-44.0); MEAN CORPUSCULAR HEMOGLOBIN 29.2 pg (26.0-34.0); MEAN CORPUSCULAR HGB CONC 32.5 G/dL (31.0-37.0); MEAN CORPUSCULAR VOLUME 90 fL (80-100); MONOCYTES # (AUTO) 0.2 K/uL (0.1-1.0); PLATELET COUNT (AUTO) 238 K/uL (150-450); RED BLOOD CELL COUNT(AUTO) 3.66 MIL/uL (4.50-5.90); RED CELL DISTRIBUTION WIDTH 15.2 % (11.5-14.5)
[2021-06-14] MEDS ORDERED: DEXTROSE 5%-WATER 1,000 ML IV SCH ×2 (12:15→22:00)
[2021-06-14 12:17] LABS: NEUTROPHILS % (AUTO) 96.8 % (40.0-70.0)
[2021-06-14 12:27] LABS: ANION GAP 8 mmol/L (8-16); CALCIUM, TOTAL 8.9 mg/dL (8.8-10.5); CARBON DIOXIDE 25 mmol/L (22-29); CHLORIDE 107 mmol/L (98-107); GLUCOSE,RANDOM 166 mg/dL (70-110); POTASSIUM 3.5 mmol/L (3.5-5.1); SODIUM SERUM 140 mmol/L (136-145); UREA NITROGEN, BLOOD 28 mg/dL (7-18)
[2021-06-14 12:33] LABS: ALANINE AMINOTRANSFERASE 48 U/L (12-78); ALBUMIN 1.4 g/dL (3.4-5.0); ALKALINE PHOSPHATASE 180 U/L (46-116); ASPARTATE AMINOTRANSFERASE 33 U/L (15-37); BILIRUBIN,TOTAL 0.4 mg/dL (0.1-1.0); TOTAL PROTEIN, SERUM 5.5 g/dL (6.4-8.2)
[2021-06-14 12:36] LABS: GLOMERULAR FILTR. RATE CALC > 60 mL/min (>60)
[2021-06-14] MEDS: MORPHINE SULFATE 2 MG/ML SYRINGE IVP PRN (12:47)
[2021-06-14] MEDS: DEXTROSE 5%-WATER 1,000 ML IV SCH (15:27)
[2021-06-14 16:00] VITALS: BP 110/61
[2021-06-14 20:00] VITALS: BP 127/69
[2021-06-14] MEDS ORDERED: [UNRECOGNIZED DRUG - REMARK] IV SCH ×7 (22:00)
[2021-06-15] VITALS: BP 140/89
[2021-06-15] MEDS: PIPERACILLIN SODIUM/TAZOBACTAM 2.25 GM in DEXTROSE 5%-WATER 50 ML IV SCH ×4 (00:16→18:13)
[2021-06-15] MEDS: MethylPREDNISolone SOD SUCC 125 MG/2 ML VIAL IVP SCH ×4 (00:16→18:13)
[2021-06-15] MEDS ORDERED: 0.9% SODIUM CHLORIDE 5 ML NEB SOLUTION NEB ONE ×3 (01:25→15:27)
[2021-06-15] MEDS: ALBUTEROL SULFATE 2.5 MG/0.5 ML NEB SOLUTION NEB SCH ×4 (01:28→19:39)
[2021-06-15] MEDS: LORazepam 2 MG/ML VIAL IVP PRN (03:45)
[2021-06-15 04:00] VITALS: BP 143/82
[2021-06-15 05:39] LABS: C.DIFF GDH ANTIGEN, Stool Positive (Negative); C.DIFF TOXINS A&B, Stool Negative (Negative)
[2021-06-15 08:00] VITALS: BP 156/65
[2021-06-15] MEDS ORDERED: MetroNIDAZOLE 250 MG TABLET PO SCH (08:30)
[2021-06-15] MEDS: FLUTICASONE/VILANTEROL 200-25 MCG/INH INHALER [14] IH SCH ×2 (09:00→10:18)
[2021-06-15] MEDS: FLUTICASONE PROPIONATE 50 MCG/SPRAY 16 GM NASAL SPRAY NASAL SCH ×2 (09:00→20:44)
[2021-06-15] MEDS: ASPIRIN 300 MG RECTAL SUPPOSITORY PR SCH (09:00)
[2021-06-15 09:32] LABS: ALANINE AMINOTRANSFERASE 55 U/L (12-78); ALBUMIN 1.6 g/dL (3.4-5.0); ALKALINE PHOSPHATASE 194 U/L (46-116); ANION GAP 12 mmol/L (8-16); ASPARTATE AMINOTRANSFERASE 34 U/L (15-37); BILIRUBIN,TOTAL 0.5 mg/dL (0.1-1.0); CALCIUM, TOTAL 8.8 mg/dL (8.8-10.5); CARBON DIOXIDE 22 mmol/L (22-29); CHLORIDE 103 mmol/L (98-107); CREATININE 0.81 mg/dL (0.60-1.30); GLUCOSE,RANDOM 180 mg/dL (70-110); PHOSPHORUS 2.2 mg/dL (2.5-4.9); POTASSIUM 3.6 mmol/L (3.5-5.1); SODIUM SERUM 137 mmol/L (136-145); TOTAL PROTEIN, SERUM 6.4 g/dL (6.4-8.2); UREA NITROGEN, BLOOD 26 mg/dL (7-18)
[2021-06-15 09:35] LABS: GLOMERULAR FILTR. RATE CALC > 60 mL/min (>60)
[2021-06-15] MEDS: PANTOPRAZOLE SODIUM 40 MG/VIAL IVP SCH (10:17)
[2021-06-15] MEDS: ETHYL ALCOHOL 62% ANTISEPTIC NASAL INHALANT 0.6 ML AMPUL NASAL SCH ×2 (10:18→20:43)
[2021-06-15] MEDS: THIAMINE 100 MG/ML 2 ML VIAL IVP SCH (10:18)
[2021-06-15] MEDS: MetroNIDAZOLE 250 MG/NACL 50 ML IV SCH ×3 (10:19→22:27)
[2021-06-15] MEDS: CARBIDOPA/LEVODOPA 25-250 MG TABLET PO SCH ×3 (10:33→20:39)
[2021-06-15 11:16] LABS: BASOPHILS % (AUTO) 0.1 % (0.0-2.0); EOSINOPHILS % (AUTO) 0 % (1.0-6.0); HEMATOCRIT 33.8 % (41-53); HEMOGLOBIN 10.9 g/dL (13.5-17.5); LYMPHOCYTES # (AUTO) 0.1 K/uL (1.0-4.8); LYMPHOCYTES % (AUTO) 0.5 % (22.0-44.0); MEAN CORPUSCULAR HEMOGLOBIN 28.6 pg (26.0-34.0); MEAN CORPUSCULAR HGB CONC 32.2 G/dL (31.0-37.0); MEAN CORPUSCULAR VOLUME 89 fL (80-100); MONOCYTES # (AUTO) 0.2 K/uL (0.1-1.0); NEUTROPHILS # (AUTO) 21.2 K/uL (1.8-7.7); PLATELET COUNT (AUTO) 251 K/uL (150-450); RED BLOOD CELL COUNT(AUTO) 3.82 MIL/uL (4.50-5.90); RED CELL DISTRIBUTION WIDTH 15.3 % (11.5-14.5)
[2021-06-15 11:21] LABS: NEUTROPHILS % (AUTO) 98.4 % (40.0-70.0)
[2021-06-15 12:00] VITALS: BP 162/85
[2021-06-15] MEDS ORDERED: SODIUM PHOS,M-BASIC-D-BASIC 10 MEQ in DEXTROSE 5%-WATER 50 ML IV ONE (13:30)
[2021-06-15] MEDS: MORPHINE SULFATE 2 MG/ML SYRINGE IVP PRN (15:43)
[2021-06-15 16:00] VITALS: BP 158/81
[2021-06-15 20:00] VITALS: BP 110/59
[2021-06-15] MEDS ORDERED: [UNRECOGNIZED DRUG - OTHER] IV SCH ×8 (22:00)
[2021-06-15] MEDS ORDERED: POTASSIUM CHLORIDE IV SCH ×8 (22:00)
[2021-06-15] MEDS ORDERED: POTASSIUM PHOS M BASIC D BASIC IV SCH ×8 (22:00)
[2021-06-15] MEDS ORDERED: PPN IV SCH ×8 (22:00)
[2021-06-15] MEDS: POTASSIUM CHLORIDE IV SCH ×8 (22:24)
[2021-06-15] MEDS: POTASSIUM PHOS M BASIC D BASIC IV SCH ×8 (22:24)
[2021-06-15] MEDS: PPN IV SCH ×8 (22:24)
[2021-06-15] MEDS: [UNRECOGNIZED DRUG - OTHER] IV SCH ×8 (22:24)
[2021-06-16] VITALS: BP 148/74
[2021-06-16] MEDS: MethylPREDNISolone SOD SUCC 125 MG/2 ML VIAL IVP SCH ×5 (00:04→23:28)
[2021-06-16] MEDS: PIPERACILLIN SODIUM/TAZOBACTAM 2.25 GM in DEXTROSE 5%-WATER 50 ML IV SCH ×5 (00:04→23:28)
[2021-06-16] MEDS: ALBUTEROL SULFATE 2.5 MG/0.5 ML NEB SOLUTION NEB SCH ×4 (01:13→19:40)
[2021-06-16 04:00] VITALS: BP 152/80
[2021-06-16] MEDS: MetroNIDAZOLE 250 MG/NACL 50 ML IV SCH ×4 (04:36→21:05)
[2021-06-16] MEDS: MORPHINE SULFATE 2 MG/ML SYRINGE IVP PRN ×7 (04:56→22:53)
[2021-06-16 06:15] LABS: BASOPHILS % (AUTO) 0.1 % (0.0-2.0); EOSINOPHILS % (AUTO) 0 % (1.0-6.0); HEMOGLOBIN 11.6 g/dL (13.5-17.5); LYMPHOCYTES # (AUTO) 0.1 K/uL (1.0-4.8); LYMPHOCYTES % (AUTO) 0.6 % (22.0-44.0); MEAN CORPUSCULAR HEMOGLOBIN 29.1 pg (26.0-34.0); MEAN CORPUSCULAR HGB CONC 32.3 G/dL (31.0-37.0); MEAN CORPUSCULAR VOLUME 90 fL (80-100); MONOCYTES # (AUTO) 0.2 K/uL (0.1-1.0); MONOCYTES % (AUTO) 1.3 % (2.0-9.0); NEUTROPHILS # (AUTO) 17.8 K/uL (1.8-7.7); PLATELET COUNT (AUTO) 252 K/uL (150-450)
[2021-06-16 06:34] LABS: ALANINE AMINOTRANSFERASE 43 U/L (12-78); ALBUMIN 1.5 g/dL (3.4-5.0); ALKALINE PHOSPHATASE 164 U/L (46-116); ANION GAP 8 mmol/L (8-16); ASPARTATE AMINOTRANSFERASE 23 U/L (15-37); BILIRUBIN,TOTAL 0.4 mg/dL (0.1-1.0); CALCIUM, TOTAL 8.8 mg/dL (8.8-10.5); CARBON DIOXIDE 25 mmol/L (22-29); CHLORIDE 105 mmol/L (98-107); CREATININE 0.81 mg/dL (0.60-1.30); GLUCOSE,RANDOM 217 mg/dL (70-110); PHOSPHORUS 2.8 mg/dL (2.5-4.9); POTASSIUM 3.8 mmol/L (3.5-5.1); SODIUM SERUM 138 mmol/L (136-145); TOTAL PROTEIN, SERUM 5.4 g/dL (6.4-8.2); UREA NITROGEN, BLOOD 32 mg/dL (7-18)
[2021-06-16 06:38] LABS: GLOMERULAR FILTR. RATE CALC > 60 mL/min (>60)
[2021-06-16] MEDS ORDERED: 0.9% SODIUM CHLORIDE 5 ML NEB SOLUTION NEB ONE ×4 (07:32→19:38)
[2021-06-16 08:00] VITALS: BP 175/79
[2021-06-16] MEDS: FLUTICASONE/VILANTEROL 200-25 MCG/INH INHALER [14] IH SCH (08:27)
[2021-06-16] MEDS: THIAMINE 100 MG/ML 2 ML VIAL IVP SCH (08:27)
[2021-06-16] MEDS: PANTOPRAZOLE SODIUM 40 MG/VIAL IVP SCH (08:27)
[2021-06-16] MEDS: FLUTICASONE PROPIONATE 50 MCG/SPRAY 16 GM NASAL SPRAY NASAL SCH ×2 (08:28→21:04)
[2021-06-16] MEDS: ETHYL ALCOHOL 62% ANTISEPTIC NASAL INHALANT 0.6 ML AMPUL NASAL SCH ×2 (08:28→21:04)
[2021-06-16] MEDS: CARBIDOPA/LEVODOPA 25-250 MG TABLET PO SCH ×3 (08:28→21:00)
[2021-06-16] MEDS: ASPIRIN 300 MG RECTAL SUPPOSITORY PR SCH (08:28)
[2021-06-16 12:00] VITALS: BP 172/89
[2021-06-16 16:00] VITALS: BP 144/82
[2021-06-16 20:00] VITALS: BP 166/72
[2021-06-16] MEDS ORDERED: SODIUM CHLORIDE 0.9% 250 ML IV ONE (21:02)
[2021-06-16] MEDS: [UNRECOGNIZED DRUG - OTHER] IV SCH ×8 (22:31)
[2021-06-16] MEDS: POTASSIUM CHLORIDE IV SCH ×8 (22:31)
[2021-06-16] MEDS: PPN IV SCH ×8 (22:31)
[2021-06-16] MEDS: POTASSIUM PHOS M BASIC D BASIC IV SCH ×8 (22:31)
[2021-06-17] VITALS: BP 137/67
[2021-06-17] MEDS ORDERED: 0.9% SODIUM CHLORIDE 5 ML NEB SOLUTION NEB ONE (01:26)
[2021-06-17] MEDS: ALBUTEROL SULFATE 2.5 MG/0.5 ML NEB SOLUTION NEB SCH ×4 (01:28→19:27)
[2021-06-17] MEDS: MetroNIDAZOLE 250 MG/NACL 50 ML IV SCH ×4 (03:07→21:28)
[2021-06-17 04:00] VITALS: BP 163/80
[2021-06-17] MEDS: MORPHINE SULFATE 2 MG/ML SYRINGE IVP PRN ×2 (04:17→08:53)
[2021-06-17] MEDS: PIPERACILLIN SODIUM/TAZOBACTAM 2.25 GM in DEXTROSE 5%-WATER 50 ML IV SCH ×4 (05:02→23:53)
[2021-06-17] MEDS: MethylPREDNISolone SOD SUCC 125 MG/2 ML VIAL IVP SCH ×3 (05:02→19:56)
[2021-06-17 05:07] LABS: BASOPHILS % (AUTO) 0.4 % (0.0-2.0); EOSINOPHILS % (AUTO) 0 % (1.0-6.0); HEMATOCRIT 34.5 % (41-53); HEMOGLOBIN 11.2 g/dL (13.5-17.5); LYMPHOCYTES # (AUTO) 0.1 K/uL (1.0-4.8); LYMPHOCYTES % (AUTO) 0.3 % (22.0-44.0); MEAN CORPUSCULAR HEMOGLOBIN 28.9 pg (26.0-34.0); MEAN CORPUSCULAR HGB CONC 32.5 G/dL (31.0-37.0); MEAN CORPUSCULAR VOLUME 89 fL (80-100); MONOCYTES # (AUTO) 0.4 K/uL (0.1-1.0); MONOCYTES % (AUTO) 1.7 % (2.0-9.0); NEUTROPHILS # (AUTO) 20.6 K/uL (1.8-7.7); PLATELET COUNT (AUTO) 306 K/uL (150-450); RED BLOOD CELL COUNT(AUTO) 3.87 MIL/uL (4.50-5.90); RED CELL DISTRIBUTION WIDTH 15.1 % (11.5-14.5)
[2021-06-17 05:27] LABS: NEUTROPHILS % (AUTO) 97.6 % (40.0-70.0)
[2021-06-17 06:24] LABS: ALANINE AMINOTRANSFERASE 41 U/L (12-78); ALBUMIN 1.5 g/dL (3.4-5.0); ALKALINE PHOSPHATASE 153 U/L (46-116); ANION GAP 8 mmol/L (8-16); ASPARTATE AMINOTRANSFERASE 19 U/L (15-37); BILIRUBIN,TOTAL 0.4 mg/dL (0.1-1.0); CALCIUM, TOTAL 8.7 mg/dL (8.8-10.5); CARBON DIOXIDE 25 mmol/L (22-29); CHLORIDE 102 mmol/L (98-107); GLUCOSE,RANDOM 232 mg/dL (70-110); PHOSPHORUS 2.3 mg/dL (2.5-4.9); POTASSIUM 3.4 mmol/L (3.5-5.1); SODIUM SERUM 135 mmol/L (136-145); TOTAL PROTEIN, SERUM 5.5 g/dL (6.4-8.2); UREA NITROGEN, BLOOD 38 mg/dL (7-18)
[2021-06-17 06:25] LABS: GLOMERULAR FILTR. RATE CALC > 60 mL/min (>60)
[2021-06-17] MEDS: CARBIDOPA/LEVODOPA 25-250 MG TABLET PO SCH ×3 (07:46→19:56)
[2021-06-17] MEDS: ASPIRIN 300 MG RECTAL SUPPOSITORY PR SCH (07:47)
[2021-06-17 08:25] VITALS: BP 152/78
[2021-06-17] MEDS: PANTOPRAZOLE SODIUM 40 MG/VIAL IVP SCH (08:49)
[2021-06-17] MEDS: THIAMINE 100 MG/ML 2 ML VIAL IVP SCH (08:49)
[2021-06-17] MEDS: ETHYL ALCOHOL 62% ANTISEPTIC NASAL INHALANT 0.6 ML AMPUL NASAL SCH ×2 (08:49→19:56)
[2021-06-17] MEDS: FLUTICASONE PROPIONATE 50 MCG/SPRAY 16 GM NASAL SPRAY NASAL SCH ×2 (08:50→19:55)
[2021-06-17] MEDS: FLUTICASONE/VILANTEROL 200-25 MCG/INH INHALER [14] IH SCH (08:51)
[2021-06-17] MEDS ORDERED: POTASSIUM PHOS,M-BASIC-D-BASIC 10 MEQ in DEXTROSE 5%-WATER 100 ML IV ONE (09:15)
[2021-06-17 12:00] VITALS: BP 163/84
[2021-06-17 16:00] VITALS: BP 163/73
[2021-06-17 20:00] VITALS: BP 160/90
[2021-06-17] MEDS ORDERED: SODIUM CHLORIDE 0.9% 250 ML IV ONE (21:10)
[2021-06-17] MEDS ORDERED: POTASSIUM CHLORIDE IV SCH ×16 (22:00)
[2021-06-17] MEDS ORDERED: SODIUM CHLORIDE IV SCH ×8 (22:00)
[2021-06-17] MEDS ORDERED: [UNRECOGNIZED DRUG - OTHER] IV SCH ×8 (22:00)
[2021-06-17] MEDS ORDERED: POTASSIUM PHOS M BASIC D BASIC IV SCH ×8 (22:00)
[2021-06-17] MEDS ORDERED: [UNRECOGNIZED DRUG - OTHER] IV SCH ×8 (22:00)
[2021-06-17] MEDS ORDERED: PPN IV SCH ×16 (22:00)
[2021-06-17 23:42] LABS: ANION GAP 6 mmol/L (8-16); CALCIUM, TOTAL 8.6 mg/dL (8.8-10.5); CARBON DIOXIDE 23 mmol/L (22-29); CHLORIDE 107 mmol/L (98-107); GLUCOSE,RANDOM 146 mg/dL (70-110); POTASSIUM 3.7 mmol/L (3.5-5.1); SODIUM SERUM 136 mmol/L (136-145); UREA NITROGEN, BLOOD 35 mg/dL (7-18)
[2021-06-17 23:43] LABS: GLOMERULAR FILTR. RATE CALC > 60 mL/min (>60)
[2021-06-18] VITALS: BP 161/79
[2021-06-18] MEDS: MethylPREDNISolone SOD SUCC 125 MG/2 ML VIAL IVP SCH ×4 (00:46→19:39)
[2021-06-18] MEDS: ALBUTEROL SULFATE 2.5 MG/0.5 ML NEB SOLUTION NEB SCH ×4 (02:27→20:13)
[2021-06-18 04:00] VITALS: BP 157/91
[2021-06-18] MEDS: MetroNIDAZOLE 250 MG/NACL 50 ML IV SCH ×3 (04:23→19:39)
[2021-06-18] MEDS: PIPERACILLIN SODIUM/TAZOBACTAM 2.25 GM in DEXTROSE 5%-WATER 50 ML IV SCH ×3 (05:30→19:41)
[2021-06-18 08:00] VITALS: BP 164/86
[2021-06-18] MEDS: FLUTICASONE PROPIONATE 50 MCG/SPRAY 16 GM NASAL SPRAY NASAL SCH ×2 (09:00→21:07)
[2021-06-18] MEDS: ETHYL ALCOHOL 62% ANTISEPTIC NASAL INHALANT 0.6 ML AMPUL NASAL SCH ×2 (09:00→21:05)
[2021-06-18] MEDS: PANTOPRAZOLE SODIUM 40 MG/VIAL IVP SCH (09:00)
[2021-06-18] MEDS: THIAMINE 100 MG/ML 2 ML VIAL IVP SCH (09:00)
[2021-06-18] MEDS: FLUTICASONE/VILANTEROL 200-25 MCG/INH INHALER [14] IH SCH (09:00)
[2021-06-18] MEDS: ASPIRIN 300 MG RECTAL SUPPOSITORY PR SCH (09:00)
[2021-06-18] MEDS: CARBIDOPA/LEVODOPA 25-250 MG TABLET PO SCH ×3 (09:00→21:00)
[2021-06-18 09:57] LABS: BASOPHILS % (AUTO) 0.3 % (0.0-2.0); EOSINOPHILS % (AUTO) 0 % (1.0-6.0); HEMATOCRIT 40.4 % (41-53); HEMOGLOBIN 13.1 g/dL (13.5-17.5); LYMPHOCYTES # (AUTO) 0.1 K/uL (1.0-4.8); LYMPHOCYTES % (AUTO) 0.4 % (22.0-44.0); MEAN CORPUSCULAR HEMOGLOBIN 28.9 pg (26.0-34.0); MEAN CORPUSCULAR HGB CONC 32.5 G/dL (31.0-37.0); MEAN CORPUSCULAR VOLUME 89 fL (80-100); MONOCYTES # (AUTO) 0.2 K/uL (0.1-1.0); MONOCYTES % (AUTO) 0.9 % (2.0-9.0); NEUTROPHILS # (AUTO) 22.3 K/uL (1.8-7.7); PLATELET COUNT (AUTO) 282 K/uL (150-450); RED BLOOD CELL COUNT(AUTO) 4.53 MIL/uL (4.50-5.90); RED CELL DISTRIBUTION WIDTH 15.3 % (11.5-14.5)
[2021-06-18 10:11] LABS: ALANINE AMINOTRANSFERASE 41 U/L (12-78); ALBUMIN 1.6 g/dL (3.4-5.0); ALKALINE PHOSPHATASE 153 U/L (46-116); ANION GAP 6 mmol/L (8-16); ASPARTATE AMINOTRANSFERASE 24 U/L (15-37); BILIRUBIN,TOTAL 0.5 mg/dL (0.1-1.0); CALCIUM, TOTAL 8.7 mg/dL (8.8-10.5); CARBON DIOXIDE 28 mmol/L (22-29); CHLORIDE 108 mmol/L (98-107); CREATININE 0.88 mg/dL (0.60-1.30); GLUCOSE,RANDOM 191 mg/dL (70-110); PHOSPHORUS 2.3 mg/dL (2.5-4.9); POTASSIUM 3.6 mmol/L (3.5-5.1); SODIUM SERUM 142 mmol/L (136-145); TOTAL PROTEIN, SERUM 5.6 g/dL (6.4-8.2); UREA NITROGEN, BLOOD 34 mg/dL (7-18)
[2021-06-18 10:12] LABS: GLOMERULAR FILTR. RATE CALC > 60 mL/min (>60)
[2021-06-18 10:23] LABS: NEUTROPHILS % (AUTO) 98.4 % (40.0-70.0)
[2021-06-18 12:00] VITALS: BP 164/94
[2021-06-18] MEDS ORDERED: SODIUM PHOS,M-BASIC-D-BASIC 30 MMOL in DEXTROSE 5%-WATER 250 ML IV ONE (12:00)
[2021-06-18 16:00] VITALS: BP 165/94
[2021-06-18 20:00] VITALS: BP 141/71
[2021-06-18] MEDS ORDERED: 0.9% SODIUM CHLORIDE 5 ML NEB SOLUTION NEB ONE (20:12)
[2021-06-18] MEDS ORDERED: [UNRECOGNIZED DRUG - OTHER] IV SCH ×9 (22:00)
[2021-06-18] MEDS ORDERED: SODIUM CHLORIDE IV SCH ×9 (22:00)
[2021-06-18] MEDS ORDERED: SODIUM ACETATE IV SCH ×9 (22:00)
[2021-06-18] MEDS ORDERED: PPN IV SCH ×9 (22:00)
[2021-06-18] MEDS ORDERED: SODIUM CHLORIDE 0.9% 250 ML IV ONE (22:16)
[2021-06-18] MEDS: SODIUM ACETATE IV SCH ×8 (22:19)
[2021-06-18] MEDS: [UNRECOGNIZED DRUG - OTHER] IV SCH ×8 (22:19)
[2021-06-18] MEDS: PPN IV SCH ×8 (22:19)
[2021-06-18] MEDS: SODIUM CHLORIDE IV SCH ×8 (22:19)
[2021-06-19] VITALS: BP 142/71
[2021-06-19] MEDS: PIPERACILLIN SODIUM/TAZOBACTAM 2.25 GM in DEXTROSE 5%-WATER 50 ML IV SCH ×5 (00:20→23:38)
[2021-06-19] MEDS: MethylPREDNISolone SOD SUCC 125 MG/2 ML VIAL IVP SCH ×5 (00:20→23:40)
[2021-06-19] MEDS ORDERED: 0.9% SODIUM CHLORIDE 5 ML NEB SOLUTION NEB ONE ×3 (01:40→13:37)
[2021-06-19] MEDS: ALBUTEROL SULFATE 2.5 MG/0.5 ML NEB SOLUTION NEB SCH ×4 (01:41→20:13)
[2021-06-19] MEDS: MetroNIDAZOLE 250 MG/NACL 50 ML IV SCH ×4 (02:13→20:35)
[2021-06-19 04:00] VITALS: BP 157/94
[2021-06-19 05:35] LABS: ALANINE AMINOTRANSFERASE 32 U/L (12-78); ALBUMIN 1.4 g/dL (3.4-5.0); ALKALINE PHOSPHATASE 126 U/L (46-116); ANION GAP 9 mmol/L (8-16); ASPARTATE AMINOTRANSFERASE 23 U/L (15-37); BILIRUBIN,TOTAL 0.5 mg/dL (0.1-1.0); CALCIUM, TOTAL 8.3 mg/dL (8.8-10.5); CARBON DIOXIDE 28 mmol/L (22-29); CHLORIDE 106 mmol/L (98-107); GLOMERULAR FILTR. RATE CALC > 60 mL/min (>60); GLUCOSE,RANDOM 215 mg/dL (70-110); PHOSPHORUS 3.9 mg/dL (2.5-4.9); POTASSIUM 3.8 mmol/L (3.5-5.1); SODIUM SERUM 143 mmol/L (136-145); UREA NITROGEN, BLOOD 38 mg/dL (7-18)
[2021-06-19 07:05] LABS: BASOPHILS % (AUTO) 0.8 % (0.0-2.0); EOSINOPHILS % (AUTO) 0 % (1.0-6.0); HEMOGLOBIN 12.3 g/dL (13.5-17.5); LYMPHOCYTES # (AUTO) 0.1 K/uL (1.0-4.8); LYMPHOCYTES % (AUTO) 0.7 % (22.0-44.0); MEAN CORPUSCULAR HGB CONC 32.4 G/dL (31.0-37.0); MEAN CORPUSCULAR VOLUME 89 fL (80-100); MONOCYTES # (AUTO) 0.2 K/uL (0.1-1.0); MONOCYTES % (AUTO) 1.1 % (2.0-9.0); NEUTROPHILS # (AUTO) 16.9 K/uL (1.8-7.7); PLATELET COUNT (AUTO) 262 K/uL (150-450); RED BLOOD CELL COUNT(AUTO) 4.26 MIL/uL (4.50-5.90); RED CELL DISTRIBUTION WIDTH 15.1 % (11.5-14.5)
[2021-06-19 07:09] LABS: NEUTROPHILS % (AUTO) 97.4 % (40.0-70.0)
[2021-06-19 08:00] VITALS: BP 152/93
[2021-06-19] MEDS: FLUTICASONE/VILANTEROL 200-25 MCG/INH INHALER [14] IH SCH (09:00)
[2021-06-19] MEDS: CARBIDOPA/LEVODOPA 25-250 MG TABLET PO SCH ×3 (09:00→20:35)
[2021-06-19] MEDS: FLUTICASONE PROPIONATE 50 MCG/SPRAY 16 GM NASAL SPRAY NASAL SCH ×2 (09:00→20:40)
[2021-06-19] MEDS: ASPIRIN 300 MG RECTAL SUPPOSITORY PR SCH (09:00)
[2021-06-19] MEDS: ETHYL ALCOHOL 62% ANTISEPTIC NASAL INHALANT 0.6 ML AMPUL NASAL SCH ×2 (09:53→20:35)
[2021-06-19] MEDS: PANTOPRAZOLE SODIUM 40 MG/VIAL IVP SCH (09:53)
[2021-06-19] MEDS: THIAMINE 100 MG/ML 2 ML VIAL IVP SCH (09:53)
[2021-06-19 12:00] VITALS: BP 158/78
[2021-06-19 16:00] VITALS: BP 128/81
[2021-06-19 20:00] VITALS: BP 156/77
[2021-06-19] MEDS: PPN IV SCH ×8 (22:42)
[2021-06-19] MEDS: [UNRECOGNIZED DRUG - OTHER] IV SCH ×8 (22:42)
[2021-06-19] MEDS: SODIUM CHLORIDE IV SCH ×8 (22:42)
[2021-06-19] MEDS: SODIUM ACETATE IV SCH ×8 (22:42)
[2021-06-20] VITALS (8 sets, daily range): BP systolic 144–178; BP diastolic 76–97
[2021-06-20 00:05] LABS: GLUCOSE,POINT OF CARE 176 MG/DL (70-110)
[2021-06-20] MEDS: MetroNIDAZOLE 250 MG/NACL 50 ML IV SCH ×4 (01:52→20:07)
[2021-06-20] MEDS ORDERED: 0.9% SODIUM CHLORIDE 5 ML NEB SOLUTION NEB ONE ×2 (02:19→19:36)
[2021-06-20] MEDS: ALBUTEROL SULFATE 2.5 MG/0.5 ML NEB SOLUTION NEB SCH ×4 (02:20→19:37)
[2021-06-20] MEDS ORDERED: SODIUM CHLORIDE 0.9% 250 ML IV ONE ×2 (05:25→21:53)
[2021-06-20] MEDS: PIPERACILLIN SODIUM/TAZOBACTAM 2.25 GM in DEXTROSE 5%-WATER 50 ML IV SCH ×3 (07:03→18:23)
[2021-06-20] MEDS: CARBIDOPA/LEVODOPA 25-250 MG TABLET PO SCH ×3 (07:26→20:03)
[2021-06-20 07:43] LABS: BASOPHILS % (AUTO) 0.6 % (0.0-2.0); EOSINOPHILS % (AUTO) 0 % (1.0-6.0); HEMATOCRIT 37.4 % (41-53); HEMOGLOBIN 12.1 g/dL (13.5-17.5); LYMPHOCYTES # (AUTO) 0.1 K/uL (1.0-4.8); LYMPHOCYTES % (AUTO) 0.4 % (22.0-44.0); MEAN CORPUSCULAR HGB CONC 32.3 G/dL (31.0-37.0); MEAN CORPUSCULAR VOLUME 90 fL (80-100); MONOCYTES # (AUTO) 0.7 K/uL (0.1-1.0); MONOCYTES % (AUTO) 2.8 % (2.0-9.0); NEUTROPHILS # (AUTO) 24.2 K/uL (1.8-7.7); PLATELET COUNT (AUTO) 318 K/uL (150-450); RED BLOOD CELL COUNT(AUTO) 4.16 MIL/uL (4.50-5.90); RED CELL DISTRIBUTION WIDTH 15.4 % (11.5-14.5)
[2021-06-20 07:52] LABS: NEUTROPHILS % (AUTO) 96.2 % (40.0-70.0)
[2021-06-20 07:53] LABS: ALANINE AMINOTRANSFERASE 38 U/L (12-78); ALBUMIN 1.6 g/dL (3.4-5.0); ALKALINE PHOSPHATASE 139 U/L (46-116); ANION GAP 8 mmol/L (8-16); ASPARTATE AMINOTRANSFERASE 23 U/L (15-37); BILIRUBIN,TOTAL 0.5 mg/dL (0.1-1.0); CALCIUM, TOTAL 8.5 mg/dL (8.8-10.5); CARBON DIOXIDE 30 mmol/L (22-29); CHLORIDE 106 mmol/L (98-107); CREATININE 0.93 mg/dL (0.60-1.30); GLUCOSE,RANDOM 196 mg/dL (70-110); PHOSPHORUS 2.8 mg/dL (2.5-4.9); POTASSIUM 3.4 mmol/L (3.5-5.1); SODIUM SERUM 144 mmol/L (136-145); TOTAL PROTEIN, SERUM 5.7 g/dL (6.4-8.2); UREA NITROGEN, BLOOD 37 mg/dL (7-18)
[2021-06-20 08:05] LABS: GLOMERULAR FILTR. RATE CALC > 60 mL/min (>60)
[2021-06-20] MEDS: PANTOPRAZOLE SODIUM 40 MG/VIAL IVP SCH (08:12)
[2021-06-20] MEDS: THIAMINE 100 MG/ML 2 ML VIAL IVP SCH (08:13)
[2021-06-20] MEDS: MethylPREDNISolone SOD SUCC 125 MG/2 ML VIAL IVP SCH ×3 (08:15→18:23)
[2021-06-20] MEDS: ASPIRIN 300 MG RECTAL SUPPOSITORY PR SCH (09:00)
[2021-06-20] MEDS: FLUTICASONE/VILANTEROL 200-25 MCG/INH INHALER [14] IH SCH (09:00)
[2021-06-20] MEDS: FLUTICASONE PROPIONATE 50 MCG/SPRAY 16 GM NASAL SPRAY NASAL SCH ×2 (09:07→20:08)
[2021-06-20] MEDS: ETHYL ALCOHOL 62% ANTISEPTIC NASAL INHALANT 0.6 ML AMPUL NASAL SCH ×2 (09:11→20:07)
[2021-06-20] MEDS ORDERED: POTASSIUM PHOS,M-BASIC-D-BASIC 20 MEQ in DEXTROSE 5%-WATER 100 ML IV ONE (09:30)
[2021-06-20] MEDS: MORPHINE SULFATE 2 MG/ML SYRINGE IVP PRN (18:51)
[2021-06-20] MEDS: [UNRECOGNIZED DRUG - OTHER] IV SCH ×8 (21:41)
[2021-06-20] MEDS: SODIUM CHLORIDE IV SCH ×8 (21:41)
[2021-06-20] MEDS: SODIUM ACETATE IV SCH ×8 (21:41)
[2021-06-20] MEDS: PPN IV SCH ×8 (21:41)
[2021-06-21] VITALS: BP 170/85
[2021-06-21] MEDS: MORPHINE SULFATE 2 MG/ML SYRINGE IVP PRN ×2 (00:11→02:29)
[2021-06-21] MEDS: MethylPREDNISolone SOD SUCC 125 MG/2 ML VIAL IVP SCH ×4 (00:13→16:38)
[2021-06-21] MEDS: PIPERACILLIN SODIUM/TAZOBACTAM 2.25 GM in DEXTROSE 5%-WATER 50 ML IV SCH ×3 (00:14→12:12)
[2021-06-21] MEDS: MetroNIDAZOLE 250 MG/NACL 50 ML IV SCH ×4 (01:51→19:38)
[2021-06-21] MEDS ORDERED: 0.9% SODIUM CHLORIDE 5 ML NEB SOLUTION NEB ONE ×4 (02:01→20:17)
[2021-06-21] MEDS: ALBUTEROL SULFATE 2.5 MG/0.5 ML NEB SOLUTION NEB SCH ×4 (02:03→20:22)
[2021-06-21 04:00] VITALS: BP 180/83
[2021-06-21 06:45] LABS: BASOPHILS % (AUTO) 1.2 % (0.0-2.0); EOSINOPHILS % (AUTO) 0 % (1.0-6.0); HEMOGLOBIN 12.8 g/dL (13.5-17.5); LYMPHOCYTES # (AUTO) 0.1 K/uL (1.0-4.8); LYMPHOCYTES % (AUTO) 0.3 % (22.0-44.0); MEAN CORPUSCULAR HEMOGLOBIN 29.4 pg (26.0-34.0); MEAN CORPUSCULAR HGB CONC 32.9 G/dL (31.0-37.0); MEAN CORPUSCULAR VOLUME 90 fL (80-100); MONOCYTES # (AUTO) 0.6 K/uL (0.1-1.0); MONOCYTES % (AUTO) 2.4 % (2.0-9.0); NEUTROPHILS # (AUTO) 24.4 K/uL (1.8-7.7); NEUTROPHILS % (AUTO) 96.1 % (40.0-70.0); PLATELET COUNT (AUTO) 227 K/uL (150-450); RED BLOOD CELL COUNT(AUTO) 4.35 MIL/uL (4.50-5.90); RED CELL DISTRIBUTION WIDTH 15.5 % (11.5-14.5)
[2021-06-21 07:10] LABS: ALANINE AMINOTRANSFERASE 37 U/L (12-78); ALBUMIN 1.6 g/dL (3.4-5.0); ALKALINE PHOSPHATASE 141 U/L (46-116); ANION GAP 6 mmol/L (8-16); ASPARTATE AMINOTRANSFERASE 25 U/L (15-37); BILIRUBIN,TOTAL 0.6 mg/dL (0.1-1.0); CALCIUM, TOTAL 8.2 mg/dL (8.8-10.5); CARBON DIOXIDE 30 mmol/L (22-29); CHLORIDE 108 mmol/L (98-107); CREATININE 0.76 mg/dL (0.60-1.30); GLUCOSE,RANDOM 203 mg/dL (70-110); PHOSPHORUS 3.3 mg/dL (2.5-4.9); POTASSIUM 3.8 mmol/L (3.5-5.1); SODIUM SERUM 144 mmol/L (136-145); TOTAL PROTEIN, SERUM 5.6 g/dL (6.4-8.2); UREA NITROGEN, BLOOD 35 mg/dL (7-18)
[2021-06-21 07:13] LABS: GLOMERULAR FILTR. RATE CALC > 60 mL/min (>60)
[2021-06-21] MEDS: ASPIRIN 300 MG RECTAL SUPPOSITORY PR SCH (07:46)
[2021-06-21] MEDS: FLUTICASONE/VILANTEROL 200-25 MCG/INH INHALER [14] IH SCH (07:47)
[2021-06-21 08:00] VITALS: BP 177/93
[2021-06-21] MEDS: THIAMINE 100 MG/ML 2 ML VIAL IVP SCH (08:03)
[2021-06-21] MEDS: ETHYL ALCOHOL 62% ANTISEPTIC NASAL INHALANT 0.6 ML AMPUL NASAL SCH ×2 (08:03→20:31)
[2021-06-21] MEDS: PANTOPRAZOLE SODIUM 40 MG/VIAL IVP SCH (08:03)
[2021-06-21] MEDS: CARBIDOPA/LEVODOPA 25-250 MG TABLET PO SCH ×3 (08:03→19:53)
[2021-06-21] MEDS: FLUTICASONE PROPIONATE 50 MCG/SPRAY 16 GM NASAL SPRAY NASAL SCH ×2 (08:04→20:31)
[2021-06-21 12:00] VITALS: BP 160/77
[2021-06-21] MEDS: HydrALAZINE HCL 20 MG/ML VIAL IVP PRN ×2 (13:52→14:13)
[2021-06-21] MEDS ORDERED: DEXTROSE 50%-WATER 25 GM/50 ML SYRINGE IVP PRN (14:30)
[2021-06-21] MEDS: INSULIN LISPRO 100 UNITS/ML SQ PRN (14:50)
[2021-06-21 16:00] VITALS: BP 174/107
[2021-06-21 20:00] VITALS: BP 144/73
[2021-06-21] MEDS ORDERED: SODIUM CHLORIDE 0.9% 250 ML IV ONE (21:43)
[2021-06-21 21:51] LABS: GLUCOSE,POINT OF CARE 205 MG/DL (70-110)
[2021-06-21] MEDS: SODIUM CHLORIDE IV SCH ×8 (22:48)
[2021-06-21] MEDS: PPN IV SCH ×8 (22:48)
[2021-06-21] MEDS: SODIUM ACETATE IV SCH ×8 (22:48)
[2021-06-21] MEDS: [UNRECOGNIZED DRUG - OTHER] IV SCH ×8 (22:48)
[2021-06-22] VITALS: BP 157/79
[2021-06-22] MEDS: MethylPREDNISolone SOD SUCC 125 MG/2 ML VIAL IVP SCH ×3 (00:07→16:20)
[2021-06-22] MEDS: MetroNIDAZOLE 250 MG/NACL 50 ML IV SCH ×4 (01:58→20:25)
[2021-06-22] MEDS ORDERED: 0.9% SODIUM CHLORIDE 5 ML NEB SOLUTION NEB ONE (02:18)
[2021-06-22] MEDS: ALBUTEROL SULFATE 2.5 MG/0.5 ML NEB SOLUTION NEB SCH ×4 (02:20→21:26)
[2021-06-22 04:00] VITALS: BP 147/78
[2021-06-22 05:16] LABS: GLUCOMETER DEV NAME(LOC) AHU.; GLUCOSE,POINT OF CARE 111 MG/DL (70-110)
[2021-06-22 05:42] LABS: ANION GAP 8 mmol/L (8-16); CALCIUM, TOTAL 8.3 mg/dL (8.8-10.5); CARBON DIOXIDE 31 mmol/L (22-29); CHLORIDE 107 mmol/L (98-107); CREATININE 0.78 mg/dL (0.60-1.30); GLUCOSE,RANDOM 185 mg/dL (70-110); PHOSPHORUS 3.2 mg/dL (2.5-4.9); SODIUM SERUM 146 mmol/L (136-145); UREA NITROGEN, BLOOD 40 mg/dL (7-18)
[2021-06-22 05:44] LABS: GLOMERULAR FILTR. RATE CALC > 60 mL/min (>60)
[2021-06-22] MEDS: INSULIN LISPRO 100 UNITS/ML SQ PRN ×3 (06:06→17:21)
[2021-06-22] MEDS: HydrALAZINE HCL 20 MG/ML VIAL IVP PRN (06:19)
[2021-06-22] MEDS: FLUTICASONE/VILANTEROL 200-25 MCG/INH INHALER [14] IH SCH (07:48)
[2021-06-22] MEDS: CARBIDOPA/LEVODOPA 25-250 MG TABLET PO SCH ×3 (07:49→20:26)
[2021-06-22] MEDS: ASPIRIN 300 MG RECTAL SUPPOSITORY PR SCH ×3 (07:57→08:03)
[2021-06-22 08:00] VITALS: BP 148/79
[2021-06-22] MEDS: THIAMINE 100 MG/ML 2 ML VIAL IVP SCH (08:01)
[2021-06-22] MEDS: ETHYL ALCOHOL 62% ANTISEPTIC NASAL INHALANT 0.6 ML AMPUL NASAL SCH ×2 (08:02→20:25)
[2021-06-22] MEDS: FLUTICASONE PROPIONATE 50 MCG/SPRAY 16 GM NASAL SPRAY NASAL SCH ×2 (08:02→20:25)
[2021-06-22] MEDS: PANTOPRAZOLE SODIUM 40 MG/VIAL IVP SCH (08:02)
[2021-06-22] MEDS ORDERED: DEXTROSE 5%-WATER 1,000 ML IV SCH (10:30)
[2021-06-22 10:56] LABS: ABG CARBOXYHEMOGLOBIN 1.2 % (0.0-1.5); ABG HCO3 28.9 mmol/L (22.0-26.0); ABG METHEMOGLOBIN 0.3 % (0.0-1.5); ABG OXYGEN CONTENT 18.5 mL/dL (15.0-23.0); ABG OXYGEN SATURATION 99.1 % (95.0-98.0); ABG OXYHEMOGLOBIN 97.6 % (94.0-100.0); ABG PCO2 37 mmHg (35-45); ABG TOTAL HEMOGLOBIN 13.3 G/dL (12.0-18.0); PO2, ARTERIAL BG 140.5 mmHg (71.0-79.0); SOURCE, BLOOD GAS ARTERIAL; TEMPERATURE, FAHRENHEIT, BG 98.7 FAHREN (96.0-98.6)
[2021-06-22 11:03] LABS: SITE, BLOOD GAS RT RADIAL
[2021-06-22 11:04] LABS: O2 DEVICE,BLOOD GAS NON REBREATHER (ROOM AIR)
[2021-06-22 11:22] LABS: GLUCOSE,POINT OF CARE 169 MG/DL (70-110)
[2021-06-22 12:00] VITALS: BP 128/94
[2021-06-22] MEDS ORDERED: SODIUM CHLORIDE 0.9% 250 ML IV ONE (14:36)
[2021-06-22 16:00] VITALS: BP 143/94
[2021-06-22] MEDS ORDERED: *CLINICAL-PERIPHERAL PARENTERAL NUTRITION DOSING CLINICAL ONE (16:45)
[2021-06-22] MEDS: LORazepam 2 MG/ML VIAL IVP PRN (17:07)
[2021-06-22 20:00] VITALS: BP 116/62
[2021-06-22] MEDS ORDERED: [UNRECOGNIZED DRUG - OTHER] IV SCH ×7 (22:00)
[2021-06-22] MEDS ORDERED: PPN IV SCH ×7 (22:00)
[2021-06-22] MEDS ORDERED: SODIUM ACETATE IV SCH ×7 (22:00)
[2021-06-22] MEDS ORDERED: POTASSIUM PHOS M BASIC D BASIC IV SCH ×7 (22:00)
[2021-06-22] MEDS: POTASSIUM PHOS M BASIC D BASIC IV SCH ×6 (23:50)
[2021-06-22] MEDS: MAGNESIUM SULFATE IV SCH ×6 (23:50)
[2021-06-22] MEDS: [UNRECOGNIZED DRUG - OTHER] IV SCH ×6 (23:50)
[2021-06-22] MEDS: PPN IV SCH ×6 (23:50)
[2021-06-23] VITALS: BP 127/69
[2021-06-23] MEDS: MethylPREDNISolone SOD SUCC 125 MG/2 ML VIAL IVP SCH ×2 (01:11→08:28)
[2021-06-23] MEDS ORDERED: SODIUM CHLORIDE 0.9% 250 ML IV ONE (01:15)
[2021-06-23] MEDS ORDERED: 0.9% SODIUM CHLORIDE 5 ML NEB SOLUTION NEB ONE ×3 (01:39→14:24)
[2021-06-23] MEDS: ALBUTEROL SULFATE 2.5 MG/0.5 ML NEB SOLUTION NEB SCH ×4 (01:40→20:07)
[2021-06-23] MEDS: MetroNIDAZOLE 250 MG/NACL 50 ML IV SCH ×5 (02:15→20:49)
[2021-06-23] MEDS: MORPHINE SULFATE 2 MG/ML SYRINGE IVP PRN ×5 (02:18→22:49)
[2021-06-23 04:00] VITALS: BP 131/72
[2021-06-23 05:26] LABS: GLUCOMETER DEV NAME(LOC) AHU.; GLUCOSE,POINT OF CARE 99 MG/DL (70-110)
[2021-06-23 05:26] LABS: GLUCOMETER DEV NAME(LOC) AHU.; GLUCOSE,POINT OF CARE 159 MG/DL (70-110)
[2021-06-23 05:26] LABS: GLUCOMETER DEV NAME(LOC) AHU.; GLUCOSE,POINT OF CARE 151 MG/DL (70-110)
[2021-06-23] MEDS: INSULIN LISPRO 100 UNITS/ML SQ PRN ×2 (06:15→23:23)
[2021-06-23 08:00] VITALS: BP 123/76
[2021-06-23] MEDS: PANTOPRAZOLE SODIUM 40 MG/VIAL IVP SCH (08:29)
[2021-06-23] MEDS: ETHYL ALCOHOL 62% ANTISEPTIC NASAL INHALANT 0.6 ML AMPUL NASAL SCH ×2 (08:30→20:49)
[2021-06-23] MEDS: THIAMINE 100 MG/ML 2 ML VIAL IVP SCH (09:00)
[2021-06-23] MEDS: FLUTICASONE/VILANTEROL 200-25 MCG/INH INHALER [14] IH SCH (09:00)
[2021-06-23] MEDS: CARBIDOPA/LEVODOPA 25-250 MG TABLET PO SCH ×3 (09:00→20:50)
[2021-06-23] MEDS: FLUTICASONE PROPIONATE 50 MCG/SPRAY 16 GM NASAL SPRAY NASAL SCH ×2 (09:00→20:49)
[2021-06-23] MEDS: ASPIRIN 300 MG RECTAL SUPPOSITORY PR SCH (09:00)
[2021-06-23 09:05] LABS: ANION GAP 5 mmol/L (8-16); CALCIUM, TOTAL 8.5 mg/dL (8.8-10.5); CARBON DIOXIDE 31 mmol/L (22-29); CHLORIDE 108 mmol/L (98-107); GLOMERULAR FILTR. RATE CALC > 60 mL/min (>60); GLUCOSE,RANDOM 203 mg/dL (70-110); PHOSPHORUS 3.1 mg/dL (2.5-4.9); POTASSIUM 4.1 mmol/L (3.5-5.1); SODIUM SERUM 144 mmol/L (136-145); UREA NITROGEN, BLOOD 51 mg/dL (7-18)
[2021-06-23 12:00] VITALS: BP 119/69
[2021-06-23 13:02] LABS: GLUCOSE,POINT OF CARE 179 MG/DL (70-110)
[2021-06-23 16:00] VITALS: BP 129/84
[2021-06-23 20:00] VITALS: BP 133/67
[2021-06-23] MEDS: POTASSIUM PHOS M BASIC D BASIC IV SCH ×6 (21:50)
[2021-06-23] MEDS: PPN IV SCH ×6 (21:50)
[2021-06-23] MEDS: MAGNESIUM SULFATE IV SCH ×6 (21:50)
[2021-06-23] MEDS: [UNRECOGNIZED DRUG - OTHER] IV SCH ×6 (21:50)
[2021-06-23 23:11] LABS: GLUCOSE,POINT OF CARE 192 MG/DL (70-110)
[2021-06-23] MEDS: MethylPREDNISolone SOD SUCC 40 MG/ML VIAL IVP SCH (23:22)
[2021-06-24] VITALS: BP 134/76
[2021-06-24] MEDS: MetroNIDAZOLE 250 MG/NACL 50 ML IV SCH ×4 (01:30→20:15)
[2021-06-24] MEDS: ALBUTEROL SULFATE 2.5 MG/0.5 ML NEB SOLUTION NEB SCH ×4 (01:54→19:23)
[2021-06-24] MEDS: MORPHINE SULFATE 2 MG/ML SYRINGE IVP PRN ×2 (03:02→18:50)
[2021-06-24 04:00] VITALS: BP 150/75
[2021-06-24 06:56] LABS: ANION GAP 0 mmol/L (8-16); CALCIUM, TOTAL 8.7 mg/dL (8.8-10.5); CARBON DIOXIDE 35 mmol/L (22-29); CHLORIDE 110 mmol/L (98-107); CREATININE 0.85 mg/dL (0.60-1.30); GLUCOSE,RANDOM 164 mg/dL (70-110); PHOSPHORUS 4.2 mg/dL (2.5-4.9); POTASSIUM 4.8 mmol/L (3.5-5.1); SODIUM SERUM 145 mmol/L (136-145); UREA NITROGEN, BLOOD 59 mg/dL (7-18)
[2021-06-24 06:58] LABS: GLOMERULAR FILTR. RATE CALC > 60 mL/min (>60)
[2021-06-24] MEDS ORDERED: 0.9% SODIUM CHLORIDE 5 ML NEB SOLUTION NEB ONE ×2 (07:18→14:07)
[2021-06-24 08:00] VITALS: BP 124/62
[2021-06-24] MEDS: FLUTICASONE/VILANTEROL 200-25 MCG/INH INHALER [14] IH SCH (08:13)
[2021-06-24] MEDS: CARBIDOPA/LEVODOPA 25-250 MG TABLET PO SCH ×4 (08:23→20:27)
[2021-06-24] MEDS: MethylPREDNISolone SOD SUCC 40 MG/ML VIAL IVP SCH ×2 (08:43→17:08)
[2021-06-24] MEDS: THIAMINE 100 MG/ML 2 ML VIAL IVP SCH (08:43)
[2021-06-24] MEDS: ASPIRIN 300 MG RECTAL SUPPOSITORY PR SCH (08:44)
[2021-06-24] MEDS: PANTOPRAZOLE SODIUM 40 MG/VIAL IVP SCH (08:44)
[2021-06-24] MEDS: ETHYL ALCOHOL 62% ANTISEPTIC NASAL INHALANT 0.6 ML AMPUL NASAL SCH ×2 (08:44→22:49)
[2021-06-24] MEDS: FLUTICASONE PROPIONATE 50 MCG/SPRAY 16 GM NASAL SPRAY NASAL SCH ×2 (08:45→21:00)
[2021-06-24 10:02] LABS: GLUCOSE,POINT OF CARE 137 MG/DL (70-110)
[2021-06-24 11:43] LABS: HEMATOCRIT 38.7 % (41-53); HEMOGLOBIN 12.1 g/dL (13.5-17.5); MEAN CORPUSCULAR HEMOGLOBIN 28.8 pg (26.0-34.0); MEAN CORPUSCULAR HGB CONC 31.2 G/dL (31.0-37.0); MEAN CORPUSCULAR VOLUME 92 fL (80-100); PLATELET COUNT (AUTO) 157 K/uL (150-450); RED BLOOD CELL COUNT(AUTO) 4.19 MIL/uL (4.50-5.90); RED CELL DISTRIBUTION WIDTH 16.4 % (11.5-14.5)
[2021-06-24 12:00] VITALS: BP 110/56
[2021-06-24 12:08] LABS: BAND NEUTROPHILS % (MANUAL) 2 % (0-5); LYMPHOCYTES % (MANUAL) 2 % (22-44); MONOCYTES % (MANUAL) 2 % (2-9); SEGMENTED NEUTROPHILS % 94 % (40-70)
[2021-06-24 16:00] VITALS: BP 114/61
[2021-06-24] MEDS: INSULIN LISPRO 100 UNITS/ML SQ PRN ×2 (18:31→22:51)
[2021-06-24 20:00] VITALS: BP 109/60
[2021-06-24 20:56] LABS: GLUCOSE,POINT OF CARE 263 MG/DL (70-110)
[2021-06-24] MEDS ORDERED: [UNRECOGNIZED DRUG - REMARK] IV SCH ×4 (22:00)
[2021-06-25] VITALS: BP 108/58
[2021-06-25] MEDS: MethylPREDNISolone SOD SUCC 40 MG/ML VIAL IVP SCH ×2 (00:39→08:22)
[2021-06-25] MEDS: MetroNIDAZOLE 250 MG/NACL 50 ML IV SCH ×2 (02:03→08:22)
[2021-06-25] MEDS: ALBUTEROL SULFATE 2.5 MG/0.5 ML NEB SOLUTION NEB SCH ×2 (02:29→07:23)
[2021-06-25 04:00] VITALS: BP 109/63
[2021-06-25 07:52] LABS: HEMOGLOBIN 11.6 g/dL (13.5-17.5); MEAN CORPUSCULAR HEMOGLOBIN 29.5 pg (26.0-34.0); MEAN CORPUSCULAR HGB CONC 31.3 G/dL (31.0-37.0); MEAN CORPUSCULAR VOLUME 94 fL (80-100); PLATELET COUNT (AUTO) 112 K/uL (150-450); RED BLOOD CELL COUNT(AUTO) 3.92 MIL/uL (4.50-5.90); RED CELL DISTRIBUTION WIDTH 16.4 % (11.5-14.5)
[2021-06-25 08:00] VITALS: BP 108/58
[2021-06-25] MEDS: CARBIDOPA/LEVODOPA 25-250 MG TABLET PO SCH (08:20)
[2021-06-25] MEDS: ETHYL ALCOHOL 62% ANTISEPTIC NASAL INHALANT 0.6 ML AMPUL NASAL SCH (08:20)
[2021-06-25 08:21] LABS: GLUCOSE,POINT OF CARE 105 MG/DL (70-110)
[2021-06-25 08:21] LABS: GLUCOSE,POINT OF CARE 143 MG/DL (70-110)
[2021-06-25] MEDS: ASPIRIN 300 MG RECTAL SUPPOSITORY PR SCH (08:22)
[2021-06-25] MEDS: PANTOPRAZOLE SODIUM 40 MG/VIAL IVP SCH (08:22)
[2021-06-25] MEDS: THIAMINE 100 MG/ML 2 ML VIAL IVP SCH (08:22)
[2021-06-25] MEDS: FLUTICASONE PROPIONATE 50 MCG/SPRAY 16 GM NASAL SPRAY NASAL SCH (08:23)
[2021-06-25] MEDS: FLUTICASONE/VILANTEROL 200-25 MCG/INH INHALER [14] IH SCH (08:23)
[2021-06-25 10:07] LABS: BAND NEUTROPHILS % (MANUAL) 3 % (0-5); LYMPHOCYTES % (MANUAL) 4 % (22-44); SEGMENTED NEUTROPHILS % 93 % (40-70)
[2021-06-25] MEDS ORDERED: MORPHINE SULFATE 2 MG/ML SYRINGE IVP PRN (10:45)
[2021-06-25] MEDS ORDERED: LORazepam 2 MG/ML VIAL IVP PRN ×3 (10:45→18:15)
[2021-06-25 13:40] VITALS: BP 97/56
[2021-06-25] MEDS: MORPHINE SULFATE 100 MG/NS/PF 100 ML IV PRN ×4 (17:08→19:19)
[2021-06-25] MEDS ORDERED: GLYCOPYRROLATE 0.2 MG/ML VIAL IVP PRN (18:15)
== END 2021-06-25 21:27 | DRG 177 ==
LOC: EMS 13:15 → 5S 17:00 → ICU 06-09 14:15 → 6N 06-25 13:20
PROVIDERS: ADMIT Internal Medicine; ATTEND Internal Medicine
PROC: 5A09557 Assistance with Respiratory Ventilation, Greater than 96 Consecutive Hours, Continuous Positive Airway Pressure (ICD-10-PCS; principal; 2021-06-09)
PROC: 05HY33Z Insertion of Infusion Device into Upper Vein, Percutaneous Approach (ICD-10-PCS; 2021-06-18)
PROC: 05HA33Z Insertion of Infusion Device into Left Brachial Vein, Percutaneous Approach (ICD-10-PCS; 2021-06-23)
DX: J69.0 Pneumonitis due to inhalation of food and vomit (principal); J96.01 Acute respiratory failure with hypoxia; A41.9 Sepsis, unspecified organism; G92.8 Other toxic encephalopathy; E43 Unspecified severe protein-calorie malnutrition; F03.91 Unspecified dementia, unspecified severity, with behavioral disturbance; N17.9 Acute kidney failure, unspecified; Z68.1 Body mass index [BMI] 19.9 or less, adult; A04.72 Enterocolitis due to Clostridium difficile, not specified as recurrent; J44.0 Chronic obstructive pulmonary disease with (acute) lower respiratory infection; J44.1 Chronic obstructive pulmonary disease with (acute) exacerbation; E87.0 Hyperosmolality and hypernatremia; E87.4 Mixed disorder of acid-base balance; E86.0 Dehydration; Z66 Do not resuscitate; I12.9 Hypertensive chronic kidney disease with stage 1 through stage 4 chronic kidney disease, or unspecified chronic kidney disease; E87.5 Hyperkalemia; G20 Parkinson's disease; N18.9 Chronic kidney disease, unspecified; I35.1 Nonrheumatic aortic (valve) insufficiency; E87.6 Hypokalemia; Z53.9 Procedure and treatment not carried out, unspecified reason; E83.39 Other disorders of phosphorus metabolism; R62.7 Adult failure to thrive; I48.91 Unspecified atrial fibrillation; Z20.822 Contact with and (suspected) exposure to COVID-19; D64.9 Anemia, unspecified; N40.0 Benign prostatic hyperplasia without lower urinary tract symptoms; R13.10 Dysphagia, unspecified; Z85.46 Personal history of malignant neoplasm of prostate; Z87.891 Personal history of nicotine dependence; Z78.1 Physical restraint status
CPT/HCPCS: 36245; 36569; 36600; 71045; 76700; 76770; 76937; 80048; 80053; 80076; 82805; 82962; 83605; 83735; 83880; 84100; 84132; 84145; 84295; 84484; 85025; 85610; 87040; 87081; 87324; 87449; 87804; 92526; 93005; 93931; 93970; 93971; 94640; 94660; 99291; C9113; G0378; J0360; J0690; J2060; J2270; J2543; J2920; J2930; J3370; J3411; J3475; J3480; J3490; J7030; J7040; J7050; J7060; J7070; J7120; J7131; Q9967; 36415-L1; 36415-TC; J7613; X7700